=== PATIENT | female | born 1960 | race American Indian/Alaskan Native ===

== ENCOUNTER 2017-02-17 15:39 | Emergency (ER) | payer OTHER ==
[2017-02-17 15:39] VITALS: BMI 39.9
[2017-02-17 16:01] VITALS: RESP 16; TEMP 98.7; O2SAT 100
--- NOTE | 2017-02-17 16:56 | ED PDOC ---
HPI: Back Time Seen by Provider: 02/17/17 16:39 Chief Complaint (Nursing): Back Pain History Per: Patient History/Exam Limitations: no limitations Onset/Duration Of Symptoms: Days Current Symptoms Are (Timing): Still Present Severity: Moderate Additional Complaint(s): 56-year-old female, presents to the emergency department with complaints of back pain. Patient states she has been experiencing right-lower back pain x1 month. Pain is intermittent in nature and non-radiating. States she has been taking Percocet at home with minimal relief. Patient reports that she woke up this morning, w/ subjective fever and cold sweats, resulting in her coming to the ED for evaluation. Patient denies nausea/vomiting, changes in urination/ bowels, or any other associated symptoms. No other complaints at this time. Of note, patient has a Hx of multiple UTIs. Past Medical History Reviewed: Historical Data, Nursing Documentation, Vital Signs Vital Signs: Last Vital Signs Temp 98.7 F 02/17/17 15:57 Pulse 104 H 02/17/17 15:57 Resp 16 02/17/17 15:57 BP 157/68 H 02/17/17 15:57 Pulse Ox 100 02/17/17 15:57 - Medical History PMH: Anxiety, Arthritis, Asthma, Back Problems, Bronchitis, COPD, Depression, Diabetes (type II (steroid induced)), Deep Vein Thrombosis, Emphysema, Gastritis , GERD, Hiatal Hernia, HTN, Pneumonia, Pulmonary Embolism (2000, 2008), Chronic Pain Denies: CAD, Cardia Arrhythmia, CHF, Crohn's Disease, Dementia, Diverticulitis, Fractures, Gall Bladder Disease, Osteoporosis, Pancreatitis, Paranoia, Parkinson's Disease, Peripheral Edema, Post Traumatic Stress Disorder , Chronic Kidney Disease, Rheumatoid Arthritis, Schizophrenia, Seizures, Sickle Cell Disease, Sexually Transmitted Disease, TIA - Surgical History Surgical History: Cholecystectomy, Endoscopy, Denies: Appendectomy, CABG, Carotid Endarterectomy, Coronary Stent, Pacemaker , Tonsillectomy - Family History Family History: States: Unknown Family Hx - Immunization History Hx Tetanus Toxoid Vaccination: No Hx Influenza Vaccination: No Hx Pneumococcal Vaccination: No - Home Medications Home Medications: Ambulatory Orders Medication Instructions Recorded Acetaminophen with Codeine 1 tab PO PRN PRN 09/02/16 [Tylenol with Codeine #3 Tablet] Esomeprazole Magnesium [Nexium] 40 mg PO DAILY 09/02/16 Montelukast [Singulair] 10 mg PO DAILY 09/02/16 PARoxetine [Paxil] 60 mg PO DAILY 09/02/16 Rivaroxaban [Xarelto] 20 mg PO DAILY 09/02/16 Albuterol HFA [Ventolin HFA 90 2 puff PO PRN PRN 09/20/16 mcg/actuation (8 g)] oxyCODONE/Acetaminophen [Percocet 1 ea PO Q6H PRN #6 tab 09/27/16 5/325 mg Tab] Fluticasone/Salmeterol 250/50 1 puff NEB BID 10/17/16 [Advair Diskus 250/50] Losartan/Hydrochlorothiazide 1 tab PO DAILY 10/17/16 [Hyzaar 12.5 mg-100 mg] Rivaroxaban [Xarelto] 10 mg PO DAILY 10/17/16 - Allergies Allergies/Adverse Reactions: Allergies Allergy/AdvReac Type Severity Reaction Status Date / Time ketorolac tromethamine Allergy bleeding Verified 02/17/17 15:56 [From Toradol] NSAIDS (Non-Steroidal AdvReac bleeding Verified 02/17/17 15:56 Anti-Inflamma lactose intolerance AdvReac SWELLING Uncoded 02/17/17 15:56 Review of Systems ROS Statement: Except As Marked, All Systems Reviewed And Found Negative Constitutional: Negative for: Fever Gastrointestinal: Negative for: Nausea, Vomiting Genitourinary Female: Negative for: Dysuria, Frequency Musculoskeletal: Positive for: Back Pain Skin: Negative for: Rash Neurological: Negative for: Weakness, Numbness Physical Exam - Reviewed Nursing Documentation Reviewed: Yes Vital Signs Reviewed: Yes - Physical Exam Appears: Positive for: Non-toxic, No Acute Distress Head Exam: Positive for: ATRAUMATIC, NORMOCEPHALIC Skin: Positive for: Warm, Dry. Negative for: Rash Eye Exam: Positive for: Normal appearance Neck: Positive for: Painless ROM Respiratory: Negative for: Accessory Muscle Use, Respiratory Distress Back: Negative for: L CVA Tenderness, R CVA Tenderness, Vertebral Tenderness, Muscle Spasm Extremity: Positive for: Normal ROM Neurologic/Psych: Positive for: Alert, Oriented - Laboratory Results Result Diagrams: 02/17/17 18:03 02/17/17 18:03 - ECG O2 Sat by Pulse Oximetry: 100 Medical Decision Making Medical Decision Making: Impression: Back pain Diff Dx (includes but not limited to) UTI vs Pyelo Plan: * CMP * CBC * Urinalysis * Reassess and Disposition Pt labs are unremarkable, UA shows no UTI PT advised that dehydration could cause symptoms of flushing or back pain severity. Pt advised to increased water intake, rest and f.u with pmd will be given Rx for motrin advised to f./u with pain mgnt for more pain control Scribe Attestation: Documented by Chloe Walters, acting as a scribe for VAL Núñez. Provider Attestation: All medical record entries made by the Scribe were at my direction and personally dictated by me. I have reviewed the chart and agree that the record accurately reflects my personal performance of the history, physical exam, medical decision making, and the department course for this patient. I have also personally directed, reviewed, and agree with the discharge instructions and disposition. Disposition - Clinical Impression Clinical Impression: Back pain - Patient ED Disposition Is Patient to be Admitted: No Counseled Patient/Family Regarding: Studies Performed, Diagnosis, Need For Followup - Disposition Disposition: Routine/Home Disposition Time: 18:35 Condition: STABLE Instructions: Acute Low Back Pain (ED)
[2017-02-17 18:07] LABS: BASO # 0.1 K/uL (0.0-0.2); BASO % 1.3 % (0.0-2.0); EOS # 0.1 K/uL (0.0-0.7); EOS % 1.1 % (0.0-4.0); LYMPH # 1.3 K/uL (1.0-4.3); LYMPH % 17.6 % (20.0-40.0); MEAN CELL VOLUME 87.4 fl (81.0-99.0); MEAN CORPUSCULAR HGB CONC 33.2 g/dL (33.0-37.0); MEAN PLATELET VOLUME 8.2 fl (7.2-11.7); MONO # 0.6 K/uL (0.0-0.8); MONO % 7.7 % (0.0-10.0); NEUT # 5.5 K/uL (1.8-7.0); NEUT % 72.3 % (50.0-75.0); NRBC % 0.1 % (0.0-0.0); RED CELL DISTRIBUTION WIDTH 14.5 % (11.5-14.5); WHITE BLOOD COUNT 7.6 K/uL (4.8-10.8)
[2017-02-17 18:07] LABS: RBC URINE 2 /hpf (0-3); URINE BACTERIA RARE (<OCC); URINE BILIRUBIN NEGATIVE (NEGATIVE); URINE BLOOD NEGATIVE (NEGATIVE); URINE COLOR YELLOW (YELLOW); URINE GLUCOSE (UA) NEG (Normal); URINE KETONE NEGATIVE (NEGATIVE); URINE LEUKOCYTE ESTERASE NEG Leu/uL (Negative); URINE PROTEIN NEGATIVE (NEGATIVE); URINE UROBILINOGEN 0.2-1.0 mg/dL (0.2-1.0); WBC URINE < 1 /hpf (0-5)
[2017-02-17 18:15] LABS: ALB/GLOB RATIO 1.1 (1.0-2.1); ALKALINE PHOSPHATASE 111 U/L (38-126); ALT/SGPT 28 U/L (9-52); AST/SGOT 20 U/L (14-36); BILIRUBIN,TOTAL 0.5 mg/dl (0.2-1.3); BLOOD UREA NITROGEN 14 mg/dl (7-17); CALCIUM 9.5 mg/dL (8.4-10.2); CARBON DIOXIDE 25 mmol/L (22-30); CHLORIDE 101 mmol/L (98-107); GFR AFRICAN-AMERICAN > 60; GLUCOSE,RANDOM 110 mg/dL (65-105); SODIUM 138 mmol/l (132-148)
[2017-02-17 19:23] VITALS: BP 143/73; PULSE 85
== END 2017-02-17 18:45 | disposition home or self-care (01) ==
LOC: H.ER 15:39
DX: M54.9 Dorsalgia, unspecified (principal)

== ENCOUNTER 2017-02-28 00:40 | Emergency (ER) | payer OTHER ==
[2017-02-28 00:40] VITALS: BMI 39.9
[2017-02-28 00:58] VITALS: BP 133/77; PULSE 80; RESP 14; TEMP 98.7; O2SAT 100
[2017-02-28] MEDS ORDERED: Fluorescein 1 mg Ophthalmic Strip ONE (01:13)
--- NOTE | 2017-02-28 01:31 | ED PDOC ---
HPI: Eye Injury/Pain Time Seen by Provider: 02/28/17 00:50 Chief Complaint (Nursing): Eye Problem Chief Complaint (Provider): right eye irritation/redness/drainage History Per: Patient History/Exam Limitations: no limitations Onset/Duration Of Symptoms: Days (3) Current Symptoms Are (Timing): Still Present Injury To Eye?: No Additional Complaint(s): 56yo female presents to the ED with c/o right eye irritation, redness, and drainage x 3 days. Patient reports drainage is clear and watery. Denies changes in vision or any other medical complaints. Patient came to ED after work. Past Medical History Reviewed: Historical Data, Nursing Documentation, Vital Signs Vital Signs: Last Vital Signs Temp 98.7 F 02/28/17 00:55 Pulse 80 02/28/17 00:55 Resp 14 02/28/17 00:55 BP 133/77 02/28/17 00:55 Pulse Ox 100 02/28/17 00:55 - Medical History PMH: Anxiety, Arthritis, Asthma, Back Problems, Bronchitis, COPD, Depression, Diabetes (type II (steroid induced)), Deep Vein Thrombosis, Emphysema, Gastritis , GERD, Hiatal Hernia, HTN, Pneumonia, Pulmonary Embolism (2000, 2008), Chronic Pain Denies: CAD, Cardia Arrhythmia, CHF, Crohn's Disease, Dementia, Diverticulitis, Fractures, Gall Bladder Disease, Osteoporosis, Pancreatitis, Paranoia, Parkinson's Disease, Peripheral Edema, Post Traumatic Stress Disorder , Chronic Kidney Disease, Rheumatoid Arthritis, Schizophrenia, Seizures, Sickle Cell Disease, Sexually Transmitted Disease, TIA - Surgical History Surgical History: Cholecystectomy, Endoscopy, Denies: Appendectomy, CABG, Carotid Endarterectomy, Coronary Stent, Pacemaker , Tonsillectomy - Family History Family History: States: Unknown Family Hx - Immunization History Hx Tetanus Toxoid Vaccination: No Hx Influenza Vaccination: No Hx Pneumococcal Vaccination: No - Home Medications Home Medications: Ambulatory Orders Medication Instructions Recorded Acetaminophen with Codeine 1 tab PO PRN PRN 09/02/16 [Tylenol with Codeine #3 Tablet] Esomeprazole Magnesium [Nexium] 40 mg PO DAILY 09/02/16 Montelukast [Singulair] 10 mg PO DAILY 09/02/16 PARoxetine [Paxil] 60 mg PO DAILY 09/02/16 Rivaroxaban [Xarelto] 20 mg PO DAILY 09/02/16 Albuterol HFA [Ventolin HFA 90 2 puff PO PRN PRN 09/20/16 mcg/actuation (8 g)] oxyCODONE/Acetaminophen [Percocet 1 ea PO Q6H PRN #6 tab 09/27/16 5/325 mg Tab] Fluticasone/Salmeterol 250/50 1 puff NEB BID 10/17/16 [Advair Diskus 250/50] Losartan/Hydrochlorothiazide 1 tab PO DAILY 10/17/16 [Hyzaar 12.5 mg-100 mg] Rivaroxaban [Xarelto] 10 mg PO DAILY 10/17/16 Gentamicin 0.1% 0.1 / TP BID #1 tube 02/28/17 - Allergies Allergies/Adverse Reactions: Allergies Allergy/AdvReac Type Severity Reaction Status Date / Time ketorolac tromethamine Allergy bleeding Verified 02/17/17 15:56 [From Toradol] NSAIDS (Non-Steroidal AdvReac bleeding Verified 02/17/17 15:56 Anti-Inflamma lactose intolerance AdvReac SWELLING Uncoded 02/17/17 15:56 Review of Systems ROS Statement: Except As Marked, All Systems Reviewed And Found Negative Eyes: Positive for: Other (right eye irritation, redness, and drainage ). Negative for: Vision Change Physical Exam - Reviewed Nursing Documentation Reviewed: Yes Vital Signs Reviewed: Yes - Physical Exam Appears: Positive for: Well, No Acute Distress Head Exam: Positive for: ATRAUMATIC, NORMAL INSPECTION, NORMOCEPHALIC Skin: Positive for: Normal Color, Warm, Dry Eye Exam: Positive for: EOMI, PERRL, Other (right eye: injected sclera, corneal abrasion to center of eye; left eye: normal ) Neurologic/Psych: Positive for: Alert, Oriented - ECG O2 Sat by Pulse Oximetry: 100 Pulse Ox Interpretation: Normal (RA) Medical Decision Making Medical Decision Makin: Impression: corneal abrasion Patient stable for d/c and given Rx for Gentamicin. Scribe Attestation: Documented by Jessica Aly acting as a scribe for Usha Leigh PA-C. Provider Scribe Attestation: All medical record entries made by the Scribe were at my direction and personally dictated by me. I have reviewed the chart and agree that the record accurately reflects my personal performance of the history, physical exam, medical decision making, and the department course for this patient. I have also personally directed, reviewed, and agree with the discharge instructions and disposition. Disposition - Clinical Impression Clinical Impression: Corneal abrasion - Patient ED Disposition Is Patient to be Admitted: No Counseled Patient/Family Regarding: Diagnosis, Need For Followup, Rx Given - Disposition Referrals: Damian Garcia MD [Primary Care Provider] - Disposition: Routine/Home Disposition Time: 01:29 Condition: GOOD Prescriptions: Gentamicin 0.1% 0.1 / TP BID #1 tube Instructions: Corneal Abrasion (ED) Forms: [facility] ED School/Work Excuse
== END 2017-02-28 01:37 | disposition home or self-care (01) ==
LOC: H.ER 00:40
DX: H57.8 Other specified disorders of eye and adnexa (principal); E11.9 Type 2 diabetes mellitus without complications; I10 Essential (primary) hypertension; J44.9 Chronic obstructive pulmonary disease, unspecified; Z79.01 Long term (current) use of anticoagulants; Z86.711 Personal history of pulmonary embolism; Z86.718 Personal history of other venous thrombosis and embolism; F41.9 Anxiety disorder, unspecified

== ENCOUNTER 2017-06-03 13:32 | Inpatient (IN) | payer OTHER ==
[2017-06-03 13:32] VITALS: BMI 39.9
[2017-06-03 14:59] LABS: RBC URINE 1 /hpf (0-3); URINE BILIRUBIN NEGATIVE (NEGATIVE); URINE BLOOD NEGATIVE (NEGATIVE); URINE COLOR YELLOW (YELLOW); URINE GLUCOSE (UA) NEG (Normal); URINE KETONE TRACE mg/dL (NEGATIVE); URINE LEUKOCYTE ESTERASE NEG Leu/uL (Negative); URINE PROTEIN 30 mg/dL (NEGATIVE); URINE UROBILINOGEN 0.2-1.0 mg/dL (0.2-1.0); WBC URINE 1 /hpf (0-5)
--- NOTE | 2017-06-03 15:04 | ED PDOC ---
HPI: Chest Pain Time Seen by Provider: 06/03/17 13:47 Chief Complaint (Nursing): Chest Pain Chief Complaint (Provider): Chest Pain History Per: Patient History/Exam Limitations: no limitations Onset/Duration Of Symptoms: Days (x2-3) Current Symptoms Are (Timing): Still Present Additional Complaint(s): Helene Montgomery is a 56 year old female with previous medical history of deep vein thrombosis and pulmonary embolism, who presents to the emergency department with a complaint of chest pain associated with shortness of breath ongoing for 2-3 days. Denied any radiation of pain, fever, chills, leg pain or edema. Patient stated she was recently admitted in the hospital in [place] for 4 days for similar symptoms where she had an endoscopy done which showed no significant findings. PMD: Damian Garcia MD Past Medical History Reviewed: Historical Data, Nursing Documentation, Vital Signs Vital Signs: Last Vital Signs Temp 99.3 F 06/03/17 13:38 Pulse 111 H 06/03/17 13:38 Resp 20 06/03/17 13:38 BP 159/81 H 06/03/17 13:38 Pulse Ox 98 06/03/17 15:44 - Medical History PMH: Anxiety, Arthritis, Asthma, Back Problems, Bronchitis, COPD, Depression, Diabetes (type II (steroid induced)), Deep Vein Thrombosis, Emphysema, Gastritis , GERD, Hiatal Hernia, HTN, Pneumonia, Pulmonary Embolism (2000, 2008), Chronic Pain Denies: CAD, Cardia Arrhythmia, CHF, Crohn's Disease, Dementia, Diverticulitis, Fractures, Gall Bladder Disease, Osteoporosis, Pancreatitis, Paranoia, Parkinson's Disease, Peripheral Edema, Post Traumatic Stress Disorder , Chronic Kidney Disease, Rheumatoid Arthritis, Schizophrenia, Seizures, Sickle Cell Disease, Sexually Transmitted Disease, TIA - Surgical History Surgical History: Cholecystectomy, Endoscopy, Denies: Appendectomy, CABG, Carotid Endarterectomy, Coronary Stent, Pacemaker , Tonsillectomy - Family History Family History: States: Unknown Family Hx - Social History Current smoker - smoking cessation education provided: No Ex-Smoker (has not smoked in the last 12 months): Yes Alcohol: None Drugs: Denies - Immunization History Hx Tetanus Toxoid Vaccination: No Hx Influenza Vaccination: No Hx Pneumococcal Vaccination: No - Home Medications Home Medications: Ambulatory Orders Medication Instructions Recorded Acetaminophen with Codeine 1 tab PO PRN PRN 09/02/16 [Tylenol with Codeine #3 Tablet] Esomeprazole Magnesium [Nexium] 40 mg PO DAILY 09/02/16 Montelukast [Singulair] 10 mg PO DAILY 09/02/16 PARoxetine [Paxil] 60 mg PO DAILY 09/02/16 Rivaroxaban [Xarelto] 20 mg PO DAILY 09/02/16 Albuterol HFA [Ventolin HFA 90 2 puff PO PRN PRN 09/20/16 mcg/actuation (8 g)] oxyCODONE/Acetaminophen [Percocet 1 ea PO Q6H PRN #6 tab 09/27/16 5/325 mg Tab] Fluticasone/Salmeterol 250/50 1 puff NEB BID 10/17/16 [Advair Diskus 250/50] Losartan/Hydrochlorothiazide 1 tab PO DAILY 10/17/16 [Hyzaar 12.5 mg-100 mg] Rivaroxaban [Xarelto] 10 mg PO DAILY 10/17/16 Gentamicin 0.1% 0.1 / TP BID #1 tube 02/28/17 - Allergies Allergies/Adverse Reactions: Allergies Allergy/AdvReac Type Severity Reaction Status Date / Time ketorolac tromethamine Allergy bleeding Verified 02/17/17 15:56 [From Toradol] NSAIDS (Non-Steroidal AdvReac bleeding Verified 02/17/17 15:56 Anti-Inflamma lactose intolerance AdvReac SWELLING Uncoded 02/17/17 15:56 PREM Risk Score for UA/NSTEMI - PREM Risk Score Age > 64: NO 3 or more CAD Risk Factors: NO Known CAD (Stenosis greater than 50%): NO Aspirin use in past 7 days: NO Severe Angina: NO EKG ST changes greater than 0.5mm: NO Positive Cardiac Marker: NO PREM Score: 0 Risk %: 5% Wells Criteria for PE - Wells Criteria for Pulmonary Embolism Clinical Signs and Symptoms of DVT: No P.E is #1 Diagnosis, or Equally Likely: Yes Heart Rate >100: Yes Immobilization at least 3 days;Surgery previous 4 weeks: No Previous, objectively diagnosed PE or DVT: Yes Hemoptysis: No Malignancy w/treatment within 6 months, or palliative: Yes Total Score: 5.0 Review of Systems ROS Statement: Except As Marked, All Systems Reviewed And Found Negative Constitutional: Negative for: Fever, Chills Cardiovascular: Positive for: Chest Pain. Negative for: Other (radiation of pain) Respiratory: Positive for: Shortness of Breath Musculoskeletal: Negative for: Leg Pain (or edema) Physical Exam - Reviewed Nursing Documentation Reviewed: Yes Vital Signs Reviewed: Yes - Physical Exam Appears: Positive for: Well, Non-toxic, No Acute Distress Head Exam: Positive for: ATRAUMATIC, NORMAL INSPECTION, NORMOCEPHALIC Cardiovascular/Chest: Positive for: Regular Rate, Rhythm, Chest Non Tender Respiratory: Positive for: Normal Breath Sounds. Negative for: Respiratory Distress Gastrointestinal/Abdominal: Positive for: Tenderness (upper epigastium). Negative for: Normal Exam Extremity: Positive for: Normal ROM. Negative for: Tenderness, Pedal Edema, Deformity Neurologic/Psych: Positive for: Alert, communications controller II-XII, Oriented - Laboratory Results Result Diagrams: 06/03/17 14:54 06/03/17 14:54 - ECG Interpretation Of ECG: ST @ 103, no ST-T changes. O2 Sat by Pulse Oximetry: 98 (RA) Pulse Ox Interpretation: Normal - Radiology X-Ray: Read By Radiologist (No active pulmonary disease. COPD.) Medical Decision Making Medical Decision Making: Initial Impression: Epigastium pain; ACS; PE Initial Plan: * EKG * Labs * Lipase * Troponin I * Urine dipstick * PTT * PT * D Dimer * CXR * Urinalysis Time: 1525 --CXR: no active pulmonary disease. COPD noted. Accession No. : [id number] Patient Name / ID : VANNESSA DELEON / [id number] Exam Date : 06/03/2017 16:15:54 ( Approved ) Study Comment : Sex / Age : F / 56Y Creator : FRANCISCA GARCIA MD Dictator : FRANCISCA GARCIA MD Director Of Operations Support : Teleprinter Installer : FRANCISCA GARCIA MD Approver2 : Report Date : 06/03/2017 16:59:07 My Comment : PROCEDURE: CT Chest with contrast (Pulmonary Angiogram) HISTORY: Midsternal pain, h/o PE COMPARISON: Chest radiographs performed the same day. TECHNIQUE: Axial computed tomography images were obtained of the chest in the pulmonary arterial phase of enhancement. Coronal and sagittal reformatted images were created and reviewed. Intravenous contrast dose: 90 mL Visipaque 320 Radiation dose: Total exam DLP = 403.65 mGy-cm. This CT exam was performed using one or more of the following dose reduction techniques: Automated exposure control, adjustment of the mA and/or kV according to patient size, and/or use of iterative reconstruction technique. FINDINGS: PULMONARY ARTERIES: Examination is limited for evaluation of pulmonary embolism due to missed bolus. Allowing for this, there are no filling defects in the central pulmonary arteries to suggest acute pulmonary embolism. AORTA: The aorta is normal in caliber. No thoracic aortic aneurysm or dissection. LUNGS: There is bibasilar subsegmental atelectasis. No nodule, mass or pulmonary consolidation. There is a subpleural calcified nodule in the right lung base. PLEURAL SPACES: No effusion or pneumothorax. HEART: The heart is normal in size. No pericardial effusion LYMPH NODES: No pathologic mediastinal or hilar lymphadenopathy. BONES, CHEST WALL: Within normal limits for the patient's age. OTHER FINDINGS: Unremarkable. IMPRESSION: 1. Suboptimal examination for evaluation of pulmonary embolism due to missed bolus. Allowing for this, no large central pulmonary embolism. 2. No focal consolidation, pleural effusion or pneumothorax. ~ Scribe Attestation: Documented by [place], acting as a scribe for Dang Franks MD. Provider Scribe Attestation: All medical record entries made by the Scribe were at my direction and personally dictated by me. I have reviewed the chart and agree that the record accurately reflects my personal performance of the history, physical exam, medical decision making, and the department course for this patient. I have also personally directed, reviewed, and agree with the discharge instructions and disposition. Disposition - Clinical Impression Clinical Impression: Chest pain - Patient ED Disposition Is Patient to be Admitted: Yes - Disposition Disposition Time: 17:26 Condition: STABLE Forms: [facility] ([place]) - Pt Status Changed To: Hospital Disposition Of: Observation - POA Present On Arrival: None
[2017-06-03 15:08] LABS: BASO # 0.1 K/uL (0.0-0.2); EOS # 0.1 K/uL (0.0-0.7); EOS % 0.9 % (0.0-4.0); HEMATOCRIT 38.8 % (34.0-47.0); LYMPH # 1.4 K/uL (1.0-4.3); LYMPH % 17.3 % (20.0-40.0); MEAN CELL VOLUME 90.5 fl (81.0-99.0); MEAN CORPUSCULAR HEMOGLOBIN 30.3 pg (27.0-31.0); MEAN CORPUSCULAR HGB CONC 33.5 g/dL (33.0-37.0); MEAN PLATELET VOLUME 8.3 fl (7.2-11.7); MONO # 0.5 K/uL (0.0-0.8); MONO % 6.2 % (0.0-10.0); NEUT # 6.2 K/uL (1.8-7.0); NEUT % 74.6 % (50.0-75.0); NRBC % 0.1 % (0.0-0.0); RED CELL DISTRIBUTION WIDTH 13.9 % (11.5-14.5); WHITE BLOOD COUNT 8.3 K/uL (4.8-10.8)
[2017-06-03 15:11] LABS: ALB/GLOB RATIO 1.3 (1.0-2.1); ALKALINE PHOSPHATASE 124 U/L (38-126); ALT/SGPT 39 U/L (9-52); AST/SGOT 22 U/L (14-36); BILIRUBIN,TOTAL 0.7 mg/dl (0.2-1.3); BLOOD UREA NITROGEN 8 mg/dl (7-17); CALCIUM 9.6 mg/dL (8.4-10.2); CARBON DIOXIDE 24 mmol/L (22-30); CHLORIDE 105 mmol/L (98-107); GFR AFRICAN-AMERICAN > 60; GLUCOSE,RANDOM 144 mg/dL (65-105); LIPASE 49 U/L (23-300); POTASSIUM 3.7 MMOL/L (3.6-5.0); SODIUM 139 mmol/l (132-148); TOTAL PROTEIN 7.1 G/DL (6.3-8.2)
[2017-06-03] MEDS ORDERED: Morphine 4 MG/ML VIAL IV STA (15:11)
[2017-06-03] MEDS ORDERED: Morphine 4 MG/ML VIAL ONE (15:14)
--- NOTE | 2017-06-03 15:27 | RAD ---
HISTORY: Midsternal pain COMPARISON: 07/21/2016. FINDINGS: LUNGS: The lungs are hyperinflated and there is peribronchial thickening with chronic changes in both lungs. PLEURA: No significant pleural effusion identified, no pneumothorax apparent. CARDIOVASCULAR: Normal. OSSEOUS STRUCTURES: No significant abnormalities. VISUALIZED UPPER ABDOMEN: Normal. OTHER FINDINGS: None. IMPRESSION: No active pulmonary disease. COPD.
[2017-06-03 15:34] LABS: PARTIAL THROMBOPLASTIN TIME 30.9 Seconds (25.6-37.1)
[2017-06-03] MEDS ORDERED: Iodixanol 320 MG/ML 100 ML BOTTLE IV ONE (15:58)
[2017-06-03] MEDS ORDERED: Sodium Chloride 0.9% 50 ML IV ONE (15:58)
--- NOTE | 2017-06-03 17:00 | CT ---
PROCEDURE: CT Chest with contrast (Pulmonary Angiogram) HISTORY: Midsternal pain, h/o PE COMPARISON: Chest radiographs performed the same day. TECHNIQUE: Axial computed tomography images were obtained of the chest in the pulmonary arterial phase of enhancement. Coronal and sagittal reformatted images were created and reviewed. Intravenous contrast dose: 90 mL Visipaque 320 Radiation dose: Total exam DLP = 403.65 mGy-cm. This CT exam was performed using one or more of the following dose reduction techniques: Automated exposure control, adjustment of the mA and/or kV according to patient size, and/or use of iterative reconstruction technique. FINDINGS: PULMONARY ARTERIES: Examination is limited for evaluation of pulmonary embolism due to missed bolus. Allowing for this, there are no filling defects in the central pulmonary arteries to suggest acute pulmonary embolism. AORTA: The aorta is normal in caliber. No thoracic aortic aneurysm or dissection. LUNGS: There is bibasilar subsegmental atelectasis. No nodule, mass or pulmonary consolidation. There is a subpleural calcified nodule in the right lung base. PLEURAL SPACES: No effusion or pneumothorax. HEART: The heart is normal in size. No pericardial effusion LYMPH NODES: No pathologic mediastinal or hilar lymphadenopathy. BONES, CHEST WALL: Within normal limits for the patient's age. OTHER FINDINGS: Unremarkable. IMPRESSION: 1. Suboptimal examination for evaluation of pulmonary embolism due to missed bolus. Allowing for this, no large central pulmonary embolism. 2. No focal consolidation, pleural effusion or pneumothorax.
[2017-06-03] MEDS ORDERED: Albuterol HFA 90 mcg/actuation (8 g) IH PRN (21:09)
[2017-06-03] MEDS ORDERED: Albuterol-Ipratrop 3 mg / 0.5 (3 ml) UD INH PRN (21:10)
[2017-06-03] MEDS: Fluticasone-Salmeterol 250-50mcg Diskus IH SCH (21:45)
[2017-06-04] MEDS ORDERED: Albuterol-Ipratrop 3 mg / 0.5 (3 ml) UD INH PRN (04:21)
[2017-06-04] MEDS: OLMESARTAN MED PO SCH (09:45)
[2017-06-04] MEDS: Fluticasone-Salmeterol 250-50mcg Diskus IH SCH ×2 (09:45→21:09)
[2017-06-04] MEDS: Pantoprazole 40 mg EC Tab PO SCH (09:45)
[2017-06-04] MEDS: AMLODIPINE BES PO SCH (09:45)
[2017-06-04] MEDS: Multivitamin With Minerals Tab PO SCH (09:46)
--- NOTE | 2017-06-04 11:39 | CARD ---
APPROVED REPORT EKG Measurement Heart [id number] <Conclusion> Sinus tachycardia Otherwise normal ECG
--- NOTE | 2017-06-04 13:11 | CP.PCM.HP ---
History of Present Illness - History of Present Illness History of Present Illness: 56 y/o F with PMHx of DVT and PE, s/p IVC filter who presented to ED yesterday c /o midchest pain. Patient states that her chest pain started months ago, and recently has been gradually increasing in intensity. Pt reports that the pain started after meals, no radiating, associated with nausea, but no vomiting, and no alleviated with recent prescribed pepcid. Patient stated she was recently admitted in the hospital in [place] for 4 days for similar symptoms where she had an endoscopy done which showed no significant findings. patient seen and examined with attending Still c/o middle chest pain. The pain is worse when she drinks coffee or after meals, and associated with nausea, but no vomiting Denies black stools, or blood in stools. Present on Admission - Present on Admission Any Indicators Present on Admission: No History of DVT/PE: Yes History of Uncontrolled Diabetes: No Urinary Catheter: No Decubitus Ulcer Present: No Review of Systems - Review of Systems All systems: reviewed and no additional remarkable complaints except (as per HPI ) Past Patient History - Infectious Disease Hx of Infectious Diseases: None - Tetanus Immunizations Tetanus Immunization: Unknown - Past Medical History & Family History Past Medical History?: Yes - Past Social History Smoking Status: Former Smoker - CARDIAC Hx Cardiac Disorders: Yes Hx Cardia Arrhythmia: No Hx Congestive Heart Failure: No Hx Hypertension: Yes Hx Pacemaker: No Hx Peripheral Edema: No - PULMONARY Hx Respiratory Disorders: Yes Hx Asthma: Yes Hx Bronchitis: Yes Hx Chronic Obstructive Pulmonary Disease (COPD): Yes Hx Emphysema: Yes Hx Pneumonia: Yes Hx Pulmonary Embolism: Yes (2000, 2008) - NEUROLOGICAL Hx Neurological Disorder: No Hx Dementia: No Hx Parkinson's Disease: No Hx Seizures: No Hx Transient Ischemic Attacks (TIA): No - HEENT Hx HEENT Problems: No Hx Blind: No Hx Cataracts: No Hx Deafness: No Hx Difficulty Chewing: No Hx Epistaxis: No Hx Glaucoma: No Hx Macular Degeneration: No - RENAL Hx Chronic Kidney Disease: No - ENDOCRINE/METABOLIC Hx Endocrine Disorders: No Other/Comment: per pt "type 2 diabetic when taking prednisone but sugar stabilized after tx" - HEMATOLOGICAL/ONCOLOGICAL Hx Blood Disorders: No Hx Sickle Cell Disease: No - INTEGUMENTARY Hx Dermatological Problems: No Hx Basil Cell: No Hx Rodriguez: No Hx Cellulitis: No Hx Eczema: No Hx Melanoma: No Hx Psoriasis: No Hx Squamous Cell: No - MUSCULOSKELETAL/RHEUMATOLOGICAL Hx Musculoskeletal Disorders: Yes Hx Arthritis: Yes Hx Back Pain: Yes Hx Falls: No Hx Fractures: No Hx Osteoporosis: No Hx Rheumatoid Arthritis: No - GASTROINTESTINAL Hx Crohn's Disease: No Hx Diverticulitis: No Hx Gall Bladder Disease: No Hx Gastritis: Yes Hx Pancreatitis: No - GENITOURINARY/GYNECOLOGICAL Hx Genitourinary Disorders: No Hx Sexually Transmitted Disorders: No - PSYCHIATRIC Hx Psychophysiologic Disorder: Yes Hx Anxiety: Yes Hx Depression: Yes Hx Paranoia: No Hx Post Traumatic Stress Disorder: No Hx Schizophrenia: No - SURGICAL HISTORY Hx Surgeries: Yes Hx Appendectomy: No Hx Carotid Endarterectomy: No Hx Cholecystectomy: Yes Hx Coronary Artery Bypass Graft: No Hx Coronary Stent: No Hx Tonsillectomy: No - ANESTHESIA Hx Anesthesia: Yes Hx Anesthesia Reactions: No Hx Malignant Hyperthermia: No Meds Allergies/Adverse Reactions: Allergies Allergy/AdvReac Type Severity Reaction Status Date / Time ketorolac tromethamine Allergy bleeding Verified 02/17/17 15:56 [From Toradol] NSAIDS (Non-Steroidal AdvReac bleeding Verified 02/17/17 15:56 Anti-Inflamma lactose intolerance AdvReac SWELLING Uncoded 02/17/17 15:56 Physical Exam - Constitutional Appears: No Acute Distress - ENT Exam ENT Exam: Mucous Membranes Moist - Respiratory Exam Respiratory Exam: Clear to Auscultation Bilateral, NORMAL BREATHING PATTERN - Cardiovascular Exam Cardiovascular Exam: REGULAR RHYTHM, +S1, +S2 - GI/Abdominal Exam GI & Abdominal Exam: Normal Bowel Sounds, Soft. absent: Distended, Guarding, Rigid, Tenderness - Extremities Exam Extremities exam: Positive for: normal inspection. Negative for: calf tenderness, pedal edema - Neurological Exam Neurological exam: Alert, Oriented x3 - Skin Skin Exam: Dry, Intact, Normal Color Results - Vital Signs Recent Vital Signs: Last Vital Signs Temp 98.5 F 06/04/17 12:00 Pulse 75 06/04/17 12:00 Resp 18 06/04/17 12:00 BP 106/71 06/04/17 12:00 Pulse Ox 94 L 06/04/17 12:00 - Labs Result Diagrams: 06/03/17 14:54 06/03/17 14:54 Labs: Laboratory Results - last 24 hr 06/03/17 06/04/17 22:00 05:20 Troponin I < 0.0120 < 0.0120 Assessment & Plan - Assessment and Plan (Free Text) Assessment: 56 y/o F with PMH including HTN, GERD, Intermittent asthma, DVT/PE admitted to telemetry with chest pain to r/o ACS. Plan: Midsternal chest pain -admit to telemetry for obs likely GERD vs Gastritis, but because patient's risk factors for ACS and PE, we need to consider these diagnosis in our differential -Troponin x 2 neg, f/u 3rd troponin I -EKG showed no ST-T wave changes -CXR showed no active disease, but evidence of COPD ( as per official report) - Chest CT read as suboptimal eval for PE -c/w with PPI -start Pepcid -start Reglan 10 mg ACHS -zofran PRN for N/V -f/u Upper GI series -Cardiology consult, consider stress test as outpatient due to risk factors -GI consult, f/u recommendations HTN -held home meds due to BP closed to low normal levels DVT prophylaxis c/w home Xarelto - Date & Time Date: 06/04/17 Time: 09:00
--- NOTE | 2017-06-04 18:27 | CP.PCM.CON ---
History of Present Illness - History of Present Illness History of Present Illness: I was asked to see patient by Dr. Garcia. Patient is a 56 year old female with PMH HTN, DVT/PE, s/p IVC filter, who presents with chest pain. Symptoms occur with rest, and are associated with eating. The patient has noted dyspepsia, but symptoms are not resposive to conservative therapy. Review of Systems - Constitutional Constitutional: absent: As Per HPI, Anorexia, Chills, Daytime Sleepiness, Excessive Sweating, Fatigue, Fever, Frequent Falls, Headache, Increased Appetite , Lethargy, Malaise, Night Sweats, Snoring, Sleep Apnea, Weight Gain, Weight Loss, Weakness, Other - EENT Eyes: absent: As Per HPI, Blind Spots, Blurred Vision, Change in Vision, Decreased Night Vision, Diplopia, Discharge, Dry Eye, Exophthalmos, Floaters, Irritation, Itchy Eyes, Loss of Peripheral Vision, Pain, Photophobia, Requires Corrective Lenses, Sees Flashes, Spots in Vision, Tunnel Vision, Other Visual Disturbances, Loss of Vision, Other Ears: absent: As Per HPI, Decreased Hearing, Ear Discharge, Ear Pain, Tinnitus, Abnormal Hearing, Disequilibrium, Dizziness, Other Nose/Mouth/Throat: absent: As Per HPI, Epistaxis, Nasal Congestion, Nasal Discharge, Nasal Obstruction, Nasal Trauma, Nose Pain, Post Nasal Drip, Sinus Pain, Sinus Pressure, Bleeding Gums, Change in Voice, Dental Pain, Dry Mouth, Dysphagia, Halitosis, Hoarsness, Lip Swelling, Mouth Lesions, Mouth Pain, Odynophagia, Sore Throat, Throat Swelling, Tongue Swelling, Facial Pain, Neck Pain, Neck Mass, Other - Cardiovascular Cardiovascular: absent: As Per HPI, Acrocyanosis, Chest Pain, Chest Pain at Rest , Chest Pain with Activity, Claudication, Diaphoresis, Dyspnea, Dyspnea on Exertion, Edema, Irregular Heart Rhythm, Pain Radiating to Arm/Neck/Jaw, Leg Edema, Leg Ulcers, Lightheadedness, Orthopnea, Palpitations, Paroxysmal Nocturnal Dyspnea, Pedal Edema, Radiating Pain, Rapid Heart Rate, Slow Heart Rate, Syncope, Other - Respiratory Respiratory: absent: As Per HPI, Cough, Dyspnea, Hemoptysis, Dyspnea on Exertion , Wheezing, Snoring, Stridor, Pain on Inspiration, Chest Congestion, Excessive Mucous Production, Change in Mucous Color, Pain with Coughing, Other - Gastrointestinal Gastrointestinal: Dyspepsia - Genitourinary Genitourinary: absent: As Per HPI, Change in Urinary Stream, Difficulty Urinating, Dysuria, Flank Pain, Hematuria, Pyuria, Nocturia, Urinary Incontinence, Urinary Frequency, Urinary Hesitance, Urinary Urgency, Voiding Freq/Small Amts, Freq UTI, Hx Renal/Bladder Calculi, Hx /Renal Surgery, Bladder Distension, Other - Musculoskeletal Musculoskeletal: absent: As Per HPI, Abnormal Gait, Arthralgias, Atrophy, Back Pain, Deformity, Joint Swelling, Limited Range of Motion, Loss of Height, Muscle Cramps, Muscle Weakness, Myalgias, Neck Pain, Numbness, Radiating Pain into Limb, Stiffness, Tingling, Other - Integumentary Integumentary: absent: As Per HPI, Acne, Alopecia, Bleeding Lesions, Change in Hair, Change in Nails, Change in Pigmentation, Changing Lesions, Dry Skin, Erythema, Furuncle, Hirsutism, Lesions, New Lesions, Non-Healing Lesions, Photosensitivity, Pruritus, Rash, Skin Pain, Skin Ulcer, Sores, Striae, Swelling , Unusual Bruising, Wounds, Jaundice, Other - Neurological Neurological: absent: As Per HPI, Abnormal Gait, Abnormal Hearing, Abnormal Movements, Abnormal Speech, Behavioral Changes, Burning Sensations, Confusion, Convulsions, Disequilibrium, Dizziness, Numbness, Focal Weakness, Frequent Falls , Headaches, Lack of Coordination, Loss of Vision, Memory Loss, Paresthesias, Radicular Pain, Restless Legs, Sensory Deficit, Syncope, Tingling, Tremor, Vertigo, Weakness, Other Visual Disturbances, Other - Psychiatric Psychiatric: absent: As Per HPI, Abnormal Sleep Pattern, Anhedonia, Anxiety, Auditory Hallucinations, Behavioral Changes, Change in Appetite, Change in Libido, Confusion, Depression, Difficulty Concentrating, Hallucinations, Homicidal Ideation, Hopelessness, Irritability, Memory Loss, Mood Swings, Panic Attacks, Paranoia, Suicidal Ideation, Visual Hallucinations, Tactile Hallucinations, Other - Endocrine Endocrine: absent: As Per HPI, Change in Body Appearance, Change in Libido, Cold Intolorance, Deepening of Voice, Excessive Sweating, Fatigue, Flushing, Heat Intolorance, Increase in Ring/Shoe/Hat Size, Palpitations, Polydipsia, Polyphagia, Polyuria, Other - Hematologic/Lymphatic Hematologic: absent: As Per HPI, Easy Bleeding, Easy Bruising, Lymphadenopathy, Other Past Patient History - Infectious Disease Hx of Infectious Diseases: None - Tetanus Immunizations Tetanus Immunization: Unknown - Past Medical History & Family History Past Medical History?: Yes - Past Social History Smoking Status: Former Smoker - CARDIAC Hx Cardiac Disorders: Yes Hx Cardia Arrhythmia: No Hx Congestive Heart Failure: No Hx Hypertension: Yes Hx Pacemaker: No Hx Peripheral Edema: No - PULMONARY Hx Respiratory Disorders: Yes Hx Asthma: Yes Hx Bronchitis: Yes Hx Chronic Obstructive Pulmonary Disease (COPD): Yes Hx Emphysema: Yes Hx Pneumonia: Yes Hx Pulmonary Embolism: Yes (2000, 2008) - NEUROLOGICAL Hx Neurological Disorder: No Hx Dementia: No Hx Parkinson's Disease: No Hx Seizures: No Hx Transient Ischemic Attacks (TIA): No - HEENT Hx HEENT Problems: No Hx Blind: No Hx Cataracts: No Hx Deafness: No Hx Difficulty Chewing: No Hx Epistaxis: No Hx Glaucoma: No Hx Macular Degeneration: No - RENAL Hx Chronic Kidney Disease: No - ENDOCRINE/METABOLIC Hx Endocrine Disorders: No Other/Comment: per pt "type 2 diabetic when taking prednisone but sugar stabilized after tx" - HEMATOLOGICAL/ONCOLOGICAL Hx Blood Disorders: No Hx Sickle Cell Disease: No - INTEGUMENTARY Hx Dermatological Problems: No Hx Basil Cell: No Hx Rodriguez: No Hx Cellulitis: No Hx Eczema: No Hx Melanoma: No Hx Psoriasis: No Hx Squamous Cell: No - MUSCULOSKELETAL/RHEUMATOLOGICAL Hx Musculoskeletal Disorders: Yes Hx Arthritis: Yes Hx Back Pain: Yes Hx Falls: No Hx Fractures: No Hx Osteoporosis: No Hx Rheumatoid Arthritis: No - GASTROINTESTINAL Hx Crohn's Disease: No Hx Diverticulitis: No Hx Gall Bladder Disease: No Hx Gastritis: Yes Hx Pancreatitis: No - GENITOURINARY/GYNECOLOGICAL Hx Genitourinary Disorders: No Hx Sexually Transmitted Disorders: No - PSYCHIATRIC Hx Psychophysiologic Disorder: Yes Hx Anxiety: Yes Hx Depression: Yes Hx Paranoia: No Hx Post Traumatic Stress Disorder: No Hx Schizophrenia: No - SURGICAL HISTORY Hx Surgeries: Yes Hx Appendectomy: No Hx Carotid Endarterectomy: No Hx Cholecystectomy: Yes Hx Coronary Artery Bypass Graft: No Hx Coronary Stent: No Hx Tonsillectomy: No - ANESTHESIA Hx Anesthesia: Yes Hx Anesthesia Reactions: No Hx Malignant Hyperthermia: No Meds Allergies/Adverse Reactions: Allergies Allergy/AdvReac Type Severity Reaction Status Date / Time ketorolac tromethamine Allergy bleeding Verified 02/17/17 15:56 [From Toradol] NSAIDS (Non-Steroidal AdvReac bleeding Verified 02/17/17 15:56 Anti-Inflamma lactose intolerance AdvReac SWELLING Uncoded 02/17/17 15:56 - Medications Medications: Current Medications Albuterol (Ventolin Hfa 90 Mcg/Actuation (8 G)) 2 puff IH Q4H PRN PRN Reason: Shortness of Breath Albuterol/Ipratropium (Duoneb 3 Mg/0.5 Mg (3 Ml) Ud) 3 ml INH RQID PRN PRN Reason: Shortness of Breath Cholecalciferol (Vitamin D) 1,000 iu PO DAILY [facility] Last Admin: 06/04/17 09:46 Dose: 1,000 iu Clonidine HCl (Catapres) 0.1 mg PO DAILY PRN PRN Reason: High Blood Pressure Famotidine (Pepcid) 40 mg IVP DAILY [facility] Last Admin: 06/04/17 13:49 Dose: 40 mg Home Med (Amlodipine Bes/Olmesartan Med [Cony 5-40 Mg Tablet]) 1 tab PO DAILY [facility] Last Admin: 06/04/17 09:45 Dose: 1 tab Metoclopramide HCl (Reglan) 10 mg PO ACHS [facility] Last Admin: 06/04/17 16:48 Dose: 10 mg Montelukast Sodium (Singulair) 10 mg PO DAILY [facility] Last Admin: 06/04/17 09:45 Dose: 10 mg Multivitamins/Minerals (Therapeutic-M Tab) 1 tab PO DAILY [facility] Last Admin: 06/04/17 09:46 Dose: 1 tab Olanzapine (Zyprexa) 5 mg PO HS [facility] Last Admin: 06/03/17 21:43 Dose: 5 mg Ondansetron HCl (Zofran Inj) 4 mg IVP Q6 PRN PRN Reason: Nausea/Vomiting Last Admin: 06/04/17 10:42 Dose: 4 mg Pantoprazole Sodium (Protonix Ec Tab) 40 mg PO DAILY [facility] Last Admin: 06/04/17 09:45 Dose: 40 mg Paroxetine HCl (Paxil) 20 mg PO DAILY [facility] Last Admin: 06/04/17 09:45 Dose: 20 mg Rivaroxaban (Xarelto) 20 mg PO HS [facility] PRN Reason: Protocol Last Admin: 06/03/17 21:44 Dose: Not Given Fluticasone/Salmeterol (Advair Diskus 250/50) 1 puff IH Q12H [facility] Last Admin: 06/04/17 09:45 Dose: 1 puff Tramadol HCl (Ultram) 50 mg PO Q8 PRN PRN Reason: Pain, severe (8-10) Last Admin: 06/03/17 21:27 Dose: 50 mg Physical Exam - Constitutional Appears: Non-toxic - Head Exam Head Exam: NORMAL INSPECTION - Eye Exam Eye Exam: Normal appearance - ENT Exam ENT Exam: Mucous Membranes Moist - Neck Exam Neck exam: Positive for: Normal Inspection - Respiratory Exam Respiratory Exam: NORMAL BREATHING PATTERN - Cardiovascular Exam Cardiovascular Exam: REGULAR RHYTHM - GI/Abdominal Exam GI & Abdominal Exam: Normal Bowel Sounds - Rectal Exam Rectal Exam: Deferred - Extremities Exam Extremities exam: Negative for: pedal edema - Back Exam Back exam: NORMAL INSPECTION - Neurological Exam Neurological exam: Alert, Oriented x3 - Psychiatric Exam Psychiatric exam: Normal Affect - Skin Skin Exam: Normal Color Results - Vital Signs Recent Vital Signs: Last Vital Signs Temp 98.1 F 06/04/17 15:38 Pulse 84 06/04/17 15:38 Resp 20 06/04/17 15:38 BP 108/71 06/04/17 15:38 Pulse Ox 96 06/04/17 15:38 - Labs Result Diagrams: 06/03/17 14:54 06/03/17 14:54 - EKG Data EKG Interpreted by: Myself Assessment & Plan (1) Chest pain Assessment and Plan: does not appear cardiac in origin. Status: Acute (2) GERD (gastroesophageal reflux disease) Assessment and Plan: recommend PPI therapy Status: Acute (3) History of pulmonary embolus (PE) Assessment and Plan: continue anticoagulant therapy Status: Chronic Priority: Low
[2017-06-05] MEDS: Fluticasone-Salmeterol 250-50mcg Diskus IH SCH ×2 (09:47→21:10)
[2017-06-05] MEDS: OLMESARTAN MED PO SCH (09:48)
[2017-06-05] MEDS: AMLODIPINE BES PO SCH (09:48)
[2017-06-05] MEDS: Pantoprazole 40 mg EC Tab PO SCH (09:49)
[2017-06-05] MEDS: Multivitamin With Minerals Tab PO SCH (09:50)
[2017-06-05] MEDS ORDERED: Barium Sulfate Susp 0.1% w/v, 0.1% w/w 450 mL Bottle PO ONE (10:29)
[2017-06-05] MEDS ORDERED: Barium Sulfate for Susp 98% w/w 340g Bottle ONE (10:29)
[2017-06-05] MEDS: Sucralfate 1 gm/10 ml Oral Susp UD PO SCH ×3 (12:51→22:39)
--- NOTE | 2017-06-05 14:49 | CP.PCM.PN ---
Subjective - Date & Time of Evaluation Date of Evaluation: 06/05/17 Time of Evaluation: 07:25 - Subjective Subjective: patient seen and examined with attending still c/o intermittent midsternal chest pain associated with meals patient denies chest pain, N/V, abdominal pain at this evaluation afebrile Objective - Vital Signs/Intake and Output Vital Signs (last 24 hours): Temp Pulse Resp BP Pulse Ox 98.3 F 94 H 18 121/78 94 L 06/05/17 13:55 06/05/17 13:55 06/05/17 13:55 06/05/17 13:55 06/05/17 13:55 - Medications Medications: Current Medications Albuterol (Ventolin Hfa 90 Mcg/Actuation (8 G)) 2 puff IH Q4H PRN PRN Reason: Shortness of Breath Albuterol/Ipratropium (Duoneb 3 Mg/0.5 Mg (3 Ml) Ud) 3 ml INH RQID PRN PRN Reason: Shortness of Breath Cholecalciferol (Vitamin D) 1,000 iu PO DAILY [facility] Last Admin: 06/05/17 09:50 Dose: 1,000 iu Clonidine HCl (Catapres) 0.1 mg PO DAILY PRN PRN Reason: High Blood Pressure Famotidine (Pepcid) 40 mg IVP DAILY [facility] Last Admin: 06/05/17 09:49 Dose: 40 mg Home Med (Amlodipine Bes/Olmesartan Med [Cony 5-40 Mg Tablet]) 1 tab PO DAILY [facility] Last Admin: 06/05/17 09:48 Dose: 1 tab Metoclopramide HCl (Reglan) 10 mg PO ACHS [facility] Last Admin: 06/05/17 12:30 Dose: 10 mg Montelukast Sodium (Singulair) 10 mg PO DAILY [facility] Last Admin: 06/05/17 09:50 Dose: 10 mg Multivitamins/Minerals (Therapeutic-M Tab) 1 tab PO DAILY [facility] Last Admin: 06/05/17 09:50 Dose: 1 tab Olanzapine (Zyprexa) 5 mg PO HS [facility] Last Admin: 06/04/17 21:12 Dose: 5 mg Ondansetron HCl (Zofran Inj) 4 mg IVP Q6 PRN PRN Reason: Nausea/Vomiting Last Admin: 06/04/17 10:42 Dose: 4 mg Pantoprazole Sodium (Protonix Ec Tab) 40 mg PO DAILY [facility] Last Admin: 06/05/17 09:49 Dose: 40 mg Paroxetine HCl (Paxil) 20 mg PO DAILY [facility] Last Admin: 06/05/17 09:48 Dose: 20 mg Rivaroxaban (Xarelto) 20 mg PO HS [facility] PRN Reason: Protocol Last Admin: 06/04/17 21:11 Dose: 20 mg Fluticasone/Salmeterol (Advair Diskus 250/50) 1 puff IH Q12H [facility] Last Admin: 06/05/17 09:47 Dose: 1 puff Sucralfate (Carafate Tab) 1 gm PO BID [facility] Sucralfate (Carafate Oral Susp) 1 gm PO QID [facility] Last Admin: 06/05/17 12:51 Dose: 1 gm Tramadol HCl (Ultram) 50 mg PO Q8 PRN PRN Reason: Pain, severe (8-10) Last Admin: 06/03/17 21:27 Dose: 50 mg Zolpidem Tartrate (Ambien) 5 mg PO HS PRN PRN Reason: Sleep Last Admin: 06/04/17 22:25 Dose: 5 mg - Labs Labs: PT 13.9 Seconds (9.8-13.1) H 06/03/17 14:54 INR 1.3 (0.9-1.2) H 06/03/17 14:54 APTT 30.9 Seconds (25.6-37.1) 06/03/17 14:54 - Additional Findings Additional findings: Constitutional Appears: No Acute Distress - ENT Exam ENT Exam: Mucous Membranes Moist - Respiratory Exam Respiratory Exam: Clear to Auscultation Bilateral, NORMAL BREATHING PATTERN - Cardiovascular Exam Cardiovascular Exam: REGULAR RHYTHM, +S1, +S2 - GI/Abdominal Exam GI & Abdominal Exam: Normal Bowel Sounds, Soft, no tender to palpation. absent : Distended, Guarding, Rigid, Tenderness - Extremities Exam Extremities exam: Positive for: normal inspection. Negative for: calf tenderness, pedal edema - Neurological Exam Neurological exam: Alert, Oriented x3 - Skin Skin Exam: Dry, Intact, Normal Color Assessment and Plan - Assessment and Plan (Free Text) Assessment: 56 y/o F with PMH including HTN, GERD, Intermittent asthma, DVT/PE admitted to telemetry with chest pain to r/o ACS. Plan: Midsternal chest pain -improving, but still present likely 2/2 GERD vs Gastritis -EKG showed no ST-T wave changes -Chest CT read as suboptimal eval for PE -c/w with PPI -c/w Pepcid -start Carafate PO -c/w Reglan 10 mg ACHS -zofran PRN for N/V -f/u Upper GI series -as per Cardiology does not appear cardiac in origin. -GI consult, f/u recommendations HTN -held home meds due to BP closed to low normal levels DVT prophylaxis c/w home Xarelto
[2017-06-05 16:26] VITALS: RESP 20
--- NOTE | 2017-06-06 00:42 | CP.PCM.PN ---
Subjective - Date & Time of Evaluation Date of Evaluation: 06/05/17 Time of Evaluation: 18:00 - Subjective Subjective: pain improved Objective - Vital Signs/Intake and Output Vital Signs (last 24 hours): Temp Pulse Resp BP Pulse Ox 98.7 F 82 20 110/70 98 06/06/17 00:14 06/06/17 00:14 06/06/17 00:14 06/06/17 00:14 06/06/17 00:14 Intake and Output: 06/05/17 06/06/17 18:59 06:59 Intake Total 1200 Balance 1200 - Medications Medications: Current Medications Albuterol (Ventolin Hfa 90 Mcg/Actuation (8 G)) 2 puff IH Q4H PRN PRN Reason: Shortness of Breath Albuterol/Ipratropium (Duoneb 3 Mg/0.5 Mg (3 Ml) Ud) 3 ml INH RQID PRN PRN Reason: Shortness of Breath Cholecalciferol (Vitamin D) 1,000 iu PO DAILY [facility] Last Admin: 06/05/17 09:50 Dose: 1,000 iu Clonidine HCl (Catapres) 0.1 mg PO DAILY PRN PRN Reason: High Blood Pressure Famotidine (Pepcid) 40 mg IVP DAILY [facility] Last Admin: 06/05/17 09:49 Dose: 40 mg Home Med (Amlodipine Bes/Olmesartan Med [Cony 5-40 Mg Tablet]) 1 tab PO DAILY [facility] Last Admin: 06/05/17 09:48 Dose: 1 tab Metoclopramide HCl (Reglan) 10 mg PO ACHS [facility] Last Admin: 06/05/17 21:11 Dose: 10 mg Montelukast Sodium (Singulair) 10 mg PO DAILY [facility] Last Admin: 06/05/17 09:50 Dose: 10 mg Multivitamins/Minerals (Therapeutic-M Tab) 1 tab PO DAILY [facility] Last Admin: 06/05/17 09:50 Dose: 1 tab Olanzapine (Zyprexa) 5 mg PO HS [facility] Last Admin: 06/05/17 21:11 Dose: 5 mg Ondansetron HCl (Zofran Inj) 4 mg IVP Q6 PRN PRN Reason: Nausea/Vomiting Last Admin: 06/04/17 10:42 Dose: 4 mg Pantoprazole Sodium (Protonix Ec Tab) 40 mg PO DAILY [facility] Last Admin: 06/05/17 09:49 Dose: 40 mg Paroxetine HCl (Paxil) 20 mg PO DAILY [facility] Last Admin: 06/05/17 09:48 Dose: 20 mg Rivaroxaban (Xarelto) 20 mg PO HS [facility] PRN Reason: Protocol Last Admin: 06/05/17 21:11 Dose: 20 mg Fluticasone/Salmeterol (Advair Diskus 250/50) 1 puff IH Q12H [facility] Last Admin: 06/05/17 21:10 Dose: 1 puff Sucralfate (Carafate Tab) 1 gm PO BID [facility] Last Admin: 06/05/17 16:38 Dose: Not Given Sucralfate (Carafate Oral Susp) 1 gm PO QID [facility] Last Admin: 06/05/17 22:39 Dose: 1 gm Tramadol HCl (Ultram) 50 mg PO Q8 PRN PRN Reason: Pain, severe (8-10) Last Admin: 06/03/17 21:27 Dose: 50 mg Zolpidem Tartrate (Ambien) 5 mg PO HS PRN PRN Reason: Sleep Last Admin: 06/05/17 21:11 Dose: 5 mg - Labs Labs: PT 13.9 Seconds (9.8-13.1) H 06/03/17 14:54 INR 1.3 (0.9-1.2) H 06/03/17 14:54 APTT 30.9 Seconds (25.6-37.1) 06/03/17 14:54 - GI/Abdominal Exam GI & Abdominal Exam: Soft, Normal Bowel Sounds Assessment and Plan - Assessment and Plan (Free Text) Assessment: 56 yo female with abd pain doing well on antacids sonogram pending if pain improved and tolerating diet can follow up with me for outpatient egd
--- NOTE | 2017-06-06 08:39 | RAD ---
PROCEDURE: Upper GI with small bowel series. HISTORY: Intractable GERD COMPARISON: Comparison is made to the previous CT of the chest dated 06/03/2017 CT of the abdomen and pelvis dated 09/05/2016. TECHNIQUE: Fluoroscopic evaluation of the stomach and small bowel was performed following administration of oral contrast. FINDINGS: Esophagus: Unremarkable, without gross mucosal abnormality, mass lesion, stricture or obstruction. Hiatal hernia: None. Reflux: [id number] gastroesophageal reflux is noted. Stomach: Rapid transit of the contrast in the small bowel. The contrast reached the large bowel after approximately 30 minute from the oral contrast administration, otherwise without gross mucosal abnormality, ulceration, mass lesion or outlet obstruction. Small bowel: Unremarkable, without gross mucosal abnormality, mass lesion, obstruction or tethering. IVC filter seen in place. IMPRESSION: [id number] gastroesophageal reflux is noted. Rapid transit of the contrast in the small bowel (30 minutes). Otherwise grossly unremarkable study.
[2017-06-06] MEDS: Fluticasone-Salmeterol 250-50mcg Diskus IH SCH (09:07)
[2017-06-06] MEDS: Sucralfate 1 gm/10 ml Oral Susp UD PO SCH ×2 (09:08→12:09)
[2017-06-06] MEDS: Multivitamin With Minerals Tab PO SCH ×2 (09:08→12:11)
[2017-06-06] MEDS: AMLODIPINE BES PO SCH ×2 (09:08→12:20)
[2017-06-06] MEDS: OLMESARTAN MED PO SCH ×2 (09:08→12:20)
--- NOTE | 2017-06-06 10:43 | CP.PCM.DIS ---
Provider - Provider Date of Admission: 06/04/17 16:28 Attending physician: Damian Garcia MD Hospital Course - Lab Results Lab Results: Most Recent Lab Values WBC 8.3 K/uL (4.8-10.8) 06/03/17 14:54 RBC 4.28 Mil/uL (3.80-5.20) 06/03/17 14:54 Hgb 13.0 g/dL (12.0-16.0) 06/03/17 14:54 Hct 38.8 % (34.0-47.0) 06/03/17 14:54 MCV 90.5 fl (81.0-99.0) 06/03/17 14:54 MCH 30.3 pg (27.0-31.0) 06/03/17 14:54 MCHC 33.5 g/dL (33.0-37.0) 06/03/17 14:54 RDW 13.9 % (11.5-14.5) 06/03/17 14:54 Plt Count 296 K/uL (130-400) 06/03/17 14:54 MPV 8.3 fl (7.2-11.7) 06/03/17 14:54 Neut % (Auto) 74.6 % (50.0-75.0) 06/03/17 14:54 Lymph % (Auto) 17.3 % (20.0-40.0) L 06/03/17 14:54 [place] % (Auto) 6.2 % (0.0-10.0) 06/03/17 14:54 Eos % (Auto) 0.9 % (0.0-4.0) 06/03/17 14:54 Baso % (Auto) 1.0 % (0.0-2.0) 06/03/17 14:54 Neut # 6.2 K/uL (1.8-7.0) 06/03/17 14:54 Lymph # 1.4 K/uL (1.0-4.3) 06/03/17 14:54 [place] # 0.5 K/uL (0.0-0.8) 06/03/17 14:54 Eos # 0.1 K/uL (0.0-0.7) 06/03/17 14:54 Baso # 0.1 K/uL (0.0-0.2) 06/03/17 14:54 PT 13.9 Seconds (9.8-13.1) H 06/03/17 14:54 INR 1.3 (0.9-1.2) H 06/03/17 14:54 APTT 30.9 Seconds (25.6-37.1) 06/03/17 14:54 D-Dimer, Quantitative < 200 ng/mlDDU (0-230) 06/03/17 14:54 Sodium 139 mmol/l (132-148) 06/03/17 14:54 Potassium 3.7 MMOL/L (3.6-5.0) 06/03/17 14:54 Chloride 105 mmol/L (98-107) 06/03/17 14:54 Carbon Dioxide 24 mmol/L (22-30) 06/03/17 14:54 Anion Gap 14 (10-20) 06/03/17 14:54 BUN 8 mg/dl (7-17) 06/03/17 14:54 Creatinine 0.8 mg/dL (0.7-1.2) 06/03/17 14:54 Est GFR ( Amer) > 60 06/03/17 14:54 Est GFR (Non-Af Amer) > 60 06/03/17 14:54 Random Glucose 144 mg/dL (65-105) H 06/03/17 14:54 Calcium 9.6 mg/dL (8.4-10.2) 06/03/17 14:54 Total Bilirubin 0.7 mg/dl (0.2-1.3) 06/03/17 14:54 AST 22 U/L (14-36) 06/03/17 14:54 ALT 39 U/L (9-52) 06/03/17 14:54 Alkaline Phosphatase 124 U/L (38-126) 06/03/17 14:54 Troponin I < 0.0120 ng/mL (0.00-0.120) 06/04/17 05:20 Total Protein 7.1 G/DL (6.3-8.2) 06/03/17 14:54 Albumin 4.0 g/dL (3.5-5.0) 06/03/17 14:54 Globulin 3.1 gm/dL (2.2-3.9) 06/03/17 14:54 Albumin/Globulin Ratio 1.3 (1.0-2.1) 06/03/17 14:54 Lipase 49 U/L (23-300) 06/03/17 14:54 Urine Color Yellow (YELLOW) 06/03/17 14:47 Urine Clarity Cloudy (Clear) 06/03/17 14:47 Urine pH 8.0 (5.0-8.0) 06/03/17 14:47 Ur Specific [place] 1.012 (1.003-1.030) 06/03/17 14:47 Urine Protein 30 mg/dL (NEGATIVE) 06/03/17 14:47 Urine Glucose (UA) Neg mg/dL (Normal) 06/03/17 14:47 Urine Ketones Trace mg/dL (NEGATIVE) 06/03/17 14:47 Urine Blood Negative (NEGATIVE) 06/03/17 14:47 Urine Nitrate Negative (NEGATIVE) 06/03/17 14:47 Urine Bilirubin Negative (NEGATIVE) 06/03/17 14:47 Urine Urobilinogen 0.2-1.0 mg/dL (0.2-1.0) 06/03/17 14:47 Ur Leukocyte Esterase Neg [place]/uL (Negative) 06/03/17 14:47 Urine RBC (Auto) 1 /hpf (0-3) 06/03/17 14:47 Urine Microscopic WBC 1 /hpf (0-5) 06/03/17 14:47 Ur Squamous Epith Cells 8 /hpf (0-5) H 06/03/17 14:47 Urine Opiates Screen Negative (NEGATIVE) 06/03/17 15:30 Urine Methadone Screen Negative (NEGATIVE) 06/03/17 15:30 Ur Barbiturates Screen Negative (NEGATIVE) 06/03/17 15:30 Ur Phencyclidine Scrn Negative (NEGATIVE) 06/03/17 15:30 Ur Amphetamines Screen Negative (NEGATIVE) 06/03/17 15:30 U Benzodiazepines Scrn Negative (NEGATIVE) 06/03/17 15:30 U Oth Cocaine Metabols Negative (NEGATIVE) 06/03/17 15:30 U Cannabinoids Screen Negative (NEGATIVE) 06/03/17 15:30 - Hospital Course Hospital Course: This is a 56 y/o Female admitted for chest pain and reflux symptoms. Discharge Exam - Head Exam Head Exam: NORMAL INSPECTION Discharge Plan - Follow Up Plan Condition: STABLE Disposition: HOME/ ROUTINE
[2017-06-06] MEDS: Pantoprazole 40 mg EC Tab PO SCH (12:10)
[2017-06-06 12:58] VITALS: BP 146/84; PULSE 89; TEMP 97.7; O2SAT 96
--- NOTE | 2017-06-06 13:34 | US ---
HISTORY: Chest pain COMPARISON: None. TECHNIQUE: Sonographic evaluation of the abdomen. FINDINGS: LIVER: Measures 19.4 cm. Patent portal vein. Portal venous flow: Hepatopetal. Unremarkeable echogenicity of the liver parenchyma. No mass. No intrahepatic bile duct dilatation. GALLBLADDER: Status post cholecystectomy. No abnormality is seen in the gallbladder fossa. COMMON BILE DUCT: Measures 5.6 mm. No stones. No dilatation. PANCREAS: Unremarkable as visualized. No mass. No ductal dilatation. RIGHT KIDNEY: Measures 5.3 x 11cm. Normal echogenicity. No calculus, mass, or hydronephrosis. LEFT KIDNEY: Measures 5.6 x 11.2cm. Normal echogenicity. No calculus, mass, or hydronephrosis. SPLEEN: Normal in size and contour. No mass. AORTA: No aneurysmal dilatation. IVC: Unremarkable. OTHER FINDINGS: None. IMPRESSION: No significant or acute findings to account for/ related to the clinical presentation.
--- NOTE | 2017-06-06 15:22 | CP.PCM.PN ---
Subjective - Date & Time of Evaluation Date of Evaluation: 06/06/17 Time of Evaluation: 15:20 - Subjective Subjective: doing well Objective - Vital Signs/Intake and Output Vital Signs (last 24 hours): Temp Pulse Resp BP Pulse Ox 97.7 F 89 20 146/84 96 06/06/17 12:00 06/06/17 12:00 06/06/17 12:00 06/06/17 12:00 06/06/17 12:00 - Medications Medications: Current Medications Albuterol (Ventolin Hfa 90 Mcg/Actuation (8 G)) 2 puff IH Q4H PRN PRN Reason: Shortness of Breath Albuterol/Ipratropium (Duoneb 3 Mg/0.5 Mg (3 Ml) Ud) 3 ml INH RQID PRN PRN Reason: Shortness of Breath Cholecalciferol (Vitamin D) 1,000 iu PO DAILY [facility] Last Admin: 06/06/17 12:10 Dose: 1,000 iu Clonidine HCl (Catapres) 0.1 mg PO DAILY PRN PRN Reason: High Blood Pressure Famotidine (Pepcid) 40 mg IVP DAILY [facility] Last Admin: 06/06/17 09:07 Dose: 40 mg Home Med (Amlodipine Bes/Olmesartan Med [Cony 5-40 Mg Tablet]) 1 tab PO DAILY [facility] Last Admin: 06/06/17 12:20 Dose: 1 tab Metoclopramide HCl (Reglan) 10 mg PO ACHS [facility] Last Admin: 06/06/17 12:09 Dose: 10 mg Montelukast Sodium (Singulair) 10 mg PO DAILY [facility] Last Admin: 06/06/17 12:10 Dose: 10 mg Multivitamins/Minerals (Therapeutic-M Tab) 1 tab PO DAILY [facility] Last Admin: 06/06/17 12:11 Dose: 1 tab Olanzapine (Zyprexa) 5 mg PO HS [facility] Last Admin: 06/05/17 21:11 Dose: 5 mg Ondansetron HCl (Zofran Inj) 4 mg IVP Q6 PRN PRN Reason: Nausea/Vomiting Last Admin: 06/04/17 10:42 Dose: 4 mg Pantoprazole Sodium (Protonix Ec Tab) 40 mg PO DAILY [facility] Last Admin: 06/06/17 12:10 Dose: 40 mg Paroxetine HCl (Paxil) 20 mg PO DAILY [facility] Last Admin: 06/06/17 12:10 Dose: 20 mg Rivaroxaban (Xarelto) 20 mg PO HS YA PRN Reason: Protocol Last Admin: 06/05/17 21:11 Dose: 20 mg Fluticasone/Salmeterol (Advair Diskus 250/50) 1 puff IH Q12H [facility] Last Admin: 06/06/17 09:07 Dose: 1 puff Sucralfate (Carafate Tab) 1 gm PO BID [facility] Last Admin: 06/06/17 09:08 Dose: Not Given Sucralfate (Carafate Oral Susp) 1 gm PO QID [facility] Last Admin: 06/06/17 12:09 Dose: 1 gm Tramadol HCl (Ultram) 50 mg PO Q8 PRN PRN Reason: Pain, severe (8-10) Last Admin: 06/03/17 21:27 Dose: 50 mg Zolpidem Tartrate (Ambien) 5 mg PO HS PRN PRN Reason: Sleep Last Admin: 06/05/17 21:11 Dose: 5 mg - Labs Labs: PT 13.9 Seconds (9.8-13.1) H 06/03/17 14:54 INR 1.3 (0.9-1.2) H 06/03/17 14:54 APTT 30.9 Seconds (25.6-37.1) 06/03/17 14:54 - GI/Abdominal Exam GI & Abdominal Exam: Soft, Normal Bowel Sounds Assessment and Plan - Assessment and Plan (Free Text) Assessment: 56 yo female with abd pain imaging noted dc planning outpt egd
--- NOTE | 2017-06-09 09:00 | CON ---
DATE: 06/04/2017 REASON FOR CONSULTATION: Bilateral pain. HISTORY OF PRESENT ILLNESS: This is a very pleasant 56-year-old female with history of DVTs, PE, status post IVC filters and was brought in for the ER yesterday for abdominal pain, chest pain, sternal pain, some discomfort as well. This has been getting worse in the past few weeks. Had an endoscopy sometime recently, which showed no other findings. The patient also had worsening pain. lying and made comfortable, in no apparent distress. PAST MEDICAL HISTORY: As above. PAST SURGICAL HISTORY: As above. MEDICATIONS: Have been reviewed. REVIEW OF SYSTEMS: Have been reviewed, negative apart from HPI. PHYSICAL EXAMINATION: VITAL SIGNS: Here in the hospital, grossly unremarkable. GENERAL: Pleasant, middle-aged female, lying comfortable, no apparent distress. HEENT: Head is normocephalic and atraumatic. Eyes; pupils equal, round, and reactive to light bilaterally. No conjunctival pallor or icterus. NECK: Supple. Normal range of motion. No lymphadenopathy appreciated. LUNGS: Coarse breath sounds bilaterally. HEART: S1 and S2. Regular rate and rhythm. No murmurs appreciated. ABDOMEN: Soft and nontender. Bowel sounds present. Some discomfort in the epigastric region. No rebound. No guarding. RECTAL: Deferred. EXTREMITIES: Pulses felt bilaterally. SKIN: Warm, dry, and intact. LABORATORY DATA: All labs and all the radiology have been reviewed. Labs include WBC of 8.8 and hemoglobin 13.0. INR 1.3. LFTs are essentially normal. Utox also was negative. ASSESSMENT AND PLAN: This is an 56-year-old female with abdominal pain and discomfort. I put her on PPIs and H2 blockers. Recommend an upper GI series as well sonogram. Can follow up with me in the office as an outpatient once all is resolved. Vj Suárez MD/ PhD cc: Damian Garcia MD [facility]
--- NOTE | 2017-06-09 15:19 | PQF CHESTP ---
Dr. Garcia pt was admitted with chest pain. If known what is the source or cause ? This form is a permanent part of the medical record There is clinical documentation of CHEST PAIN with evaluation, treatment, and / or monitoring present in the medical record. Please clarify the possible / probable cause of CHEST PAIN. Source Documentation: Chart Location: [] Progress Notes [] Consults [] Radiology Results Date: [] Date: [] Date:[] ED Records: [] H&P: [] Other: [] PHYSICIAN RESPONSE CAUSE OF CHEST PAIN: PLease Check [] Documentation: [] Musculoskeletal Chest Pain [] Costochondritis [] Gastroesophageal Reflux Disease (GERD) [] Acute Gastritis [] Other [] [] Unknown [] In responding to this query, please exercise your independent professional judgment. The fact that a question is asked does not imply that any particular answer is desired or expected. Thank you for your clarification on this documentation. If you have any questions please call:[ ] * Thank you, [ ]Gertrude Carlson parts puller CHRIS
== END 2017-06-06 15:30 | disposition home or self-care (01) | DRG 392 ==
LOC: H.ER 13:32 → H.ERHOLD 17:24 → H.TEL 19:43 → OBSVTOIN 06-04 16:28
PROVIDERS: ADMIT Family Medicine; ATTEND Family Medicine
DX: K21.9 Gastro-esophageal reflux disease without esophagitis (principal); I10 Essential (primary) hypertension; R07.89 Other chest pain; J45.20 Mild intermittent asthma, uncomplicated; J44.9 Chronic obstructive pulmonary disease, unspecified; Z86.711 Personal history of pulmonary embolism; Z86.718 Personal history of other venous thrombosis and embolism; F32.9 Major depressive disorder, single episode, unspecified; K29.70 Gastritis, unspecified, without bleeding; G89.29 Other chronic pain; R10.13 Epigastric pain; E09.9 Drug or chemical induced diabetes mellitus without complications; T38.0X5A Adverse effect of glucocorticoids and synthetic analogues, initial encounter; F41.9 Anxiety disorder, unspecified

== ENCOUNTER 2017-09-05 19:32 | Emergency (ER) | payer OTHER ==
[2017-09-05 19:32] VITALS: BMI 39.9
[2017-09-05 19:41] VITALS: BP 174/94; PULSE 86; RESP 16; TEMP 98; O2SAT 96
[2017-09-05] MEDS ORDERED: Albuterol-Ipratrop 3 mg / 0.5 (3 ml) UD IH STA (19:52)
[2017-09-05] MEDS ORDERED: Albuterol-Ipratrop 3 mg / 0.5 (3 ml) UD ONE (19:58)
--- NOTE | 2017-09-05 20:12 | ED PDOC ---
HPI: SOB/CHF/COPD Time Seen by Provider: 09/05/17 19:48 Chief Complaint (Nursing): Shortness Of Breath Chief Complaint (Provider): Shortness of breath History Per: Patient History/Exam Limitations: no limitations Onset/Duration Of Symptoms: Days (x2 days) Current Symptoms Are (Timing): Still Present Associated Symptoms: denies: Fever, Productive Cough Additional Complaint(s): Helene Montgomery, a 56 year old female, with a past medical history of bronchitis, Emphysema, asthma and COPD presents to the ED with shortness of breath x2 days. Patient states he has had no improvement when using his inhalers at home. Denies cough, fever. PMD: Damian Schmidt Past Medical History Reviewed: Historical Data, Nursing Documentation, Vital Signs Vital Signs: Last Vital Signs Temp 98.0 F 09/05/17 19:41 Pulse 86 09/05/17 19:41 Resp 16 09/05/17 19:41 BP 174/94 H 09/05/17 19:41 Pulse Ox 96 09/05/17 20:22 - Medical History PMH: Anxiety, Arthritis, Asthma, Back Problems, Bronchitis, COPD, Depression, Diabetes (type II (steroid induced)), Deep Vein Thrombosis, Emphysema, Gastritis , GERD, Hiatal Hernia, HTN, Pneumonia, Pulmonary Embolism (2000, 2008), Chronic Pain Denies: CAD, Cardia Arrhythmia, CHF, Crohn's Disease, Dementia, Diverticulitis, Fractures, Gall Bladder Disease, Osteoporosis, Pancreatitis, Paranoia, Parkinson's Disease, Peripheral Edema, Post Traumatic Stress Disorder , Chronic Kidney Disease, Rheumatoid Arthritis, Schizophrenia, Seizures, Sickle Cell Disease, Sexually Transmitted Disease, TIA - Surgical History Surgical History: Cholecystectomy, Endoscopy, Denies: Appendectomy, CABG, Carotid Endarterectomy, Coronary Stent, Pacemaker , Tonsillectomy - Family History Family History: States: Unknown Family Hx - Immunization History Hx Tetanus Toxoid Vaccination: No Hx Influenza Vaccination: No Hx Pneumococcal Vaccination: No - Home Medications Home Medications: Ambulatory Orders Medication Instructions Recorded Montelukast [Singulair] 10 mg PO DAILY 09/02/16 Rivaroxaban [Xarelto] 20 mg PO HS 09/02/16 Albuterol HFA [Ventolin HFA 90 2 puff IH Q4H PRN 09/20/16 mcg/actuation (8 g)] Fluticasone/Salmeterol 250/50 1 puff IH Q12H 10/17/16 [Advair Diskus 250/50] Amlodipine Bes/Olmesartan Med 1 tab PO DAILY 06/03/17 [Cony 5-40 mg Tablet] Cholecalciferol [Vitamin D 1000 IU] 1,000 unit PO DAILY 06/03/17 Multivitamin/Iron/Folic Acid 1 tab PO DAILY 06/03/17 [Centrum Women Tablet] Olanzapine [Zyprexa] 5 mg PO HS 06/03/17 cloNIDine [Catapres] 0.1 mg PO DAILY PRN 06/03/17 Metoclopramide [Reglan] 10 mg PO ACHS #60 tab 06/06/17 PARoxetine [Paxil] 40 mg PO DAILY #30 tab 06/06/17 Pantoprazole [Protonix EC Tab] 40 mg PO DAILY #30 ect 06/06/17 Sucralfate [Carafate Tab] 1 gm PO BID #60 tab 06/06/17 Albuterol 0.083% [Albuterol 3 ml IH Q8 #1 neb 09/05/17 Sulfate 3 Ml] Albuterol HFA [Ventolin HFA 90 2 puff IH Q4H #1 puff 09/05/17 mcg/actuation (8 g)] predniSONE [predniSONE Tab] 10 mg PO TID #15 tab 09/05/17 - Allergies Allergies/Adverse Reactions: Allergies Allergy/AdvReac Type Severity Reaction Status Date / Time ketorolac tromethamine AdvReac bleeding Verified 09/05/17 19:41 [From Toradol] NSAIDS (Non-Steroidal AdvReac bleeding Verified 02/17/17 15:56 Anti-Inflamma lactose intolerance AdvReac SWELLING Uncoded 02/17/17 15:56 Review of Systems ROS Statement: Except As Marked, All Systems Reviewed And Found Negative Constitutional: Negative for: Fever Respiratory: Positive for: Shortness of Breath. Negative for: Cough Physical Exam - Reviewed Nursing Documentation Reviewed: Yes Vital Signs Reviewed: Yes - Physical Exam Appears: Positive for: Non-toxic, No Acute Distress Head Exam: Positive for: ATRAUMATIC, NORMAL INSPECTION, NORMOCEPHALIC Skin: Positive for: Normal Color, Warm, Dry. Negative for: Rash Eye Exam: Positive for: Normal appearance, EOMI, PERRL. Negative for: Nystagmus ENT: Positive for: Normal ENT Inspection. Negative for: Nasal Congestion, Tonsillar Exudate Neck: Positive for: Normal, Painless ROM, Supple Cardiovascular/Chest: Positive for: Regular Rate, Rhythm, Chest Non Tender. Negative for: Tachycardia Respiratory: Positive for: Decreased Breath Sounds (Minimal diminished breath sounds ). Negative for: Rales, Rhonchi, Wheezing, Respiratory Distress Gastrointestinal/Abdominal: Positive for: Normal Exam, Bowel Sounds, Soft. Negative for: Tenderness, Mass, Guarding, Rebound Back: Positive for: Normal Inspection. Negative for: L CVA Tenderness, R CVA Tenderness Neurologic/Psych: Positive for: Alert, Oriented, Gait - ECG O2 Sat by Pulse Oximetry: 96 (RA) Pulse Ox Interpretation: Normal Medical Decision Making Medical Decision Makin Initial Impression 56 y/o female presenting with shortness of breath Initial plan: * Chest x-ray * Albuterol 3mL IH * Peak Flow pre/post .tx * Reevaluation Scribe Attestation Documented by Shirley Dang acting as a scribe for Fred Archuleta MD. Provider Attestation All medical record entries made by the Scribe were at my direction and personally dictated by me. I have reviewed the chart and agree that the record accurately reflects my personal performance of the history, physical exam, medical decision making, and the department course for this patient. I have also personally directed, reviewed, and agree with the discharge instructions and disposition. Disposition - Clinical Impression Clinical Impression: Asthma - Patient ED Disposition Is Patient to be Admitted: No Counseled Patient/Family Regarding: Studies Performed, Diagnosis, Need For Followup, Rx Given - Disposition Disposition: Routine/Home Disposition Time: 20:34 Condition: FAIR Prescriptions: Albuterol 0.083% [Albuterol Sulfate 3 Ml] 3 ml IH Q8 #1 neb Albuterol HFA [Ventolin HFA 90 mcg/actuation (8 g)] 2 puff IH Q4H #1 puff predniSONE [predniSONE Tab] 10 mg PO TID #15 tab Instructions: Asthma (ED) Forms: [employer] (Turkmen)
--- NOTE | 2017-09-06 10:07 | RAD ---
HISTORY: sob COMPARISON: Chest radiograph 06/03/2017. TECHNIQUE: Chest PA and lateral FINDINGS: LUNGS: No definitive alveolar infiltrate is appreciated, however, linear atelectasis appreciate the medial right lateral left basis. PLEURA: No significant pleural effusion identified. No pneumothorax apparent. CARDIOVASCULAR: Normal. OSSEOUS STRUCTURES: Scoliotic thoracic spinal deformity again evident. VISUALIZED UPPER ABDOMEN: Normal. OTHER FINDINGS: None. IMPRESSION: Limited linear atelectasis seen at the bilateral lung bases which are otherwise clear. No pleural effusion or pneumothorax bilaterally.
== END 2017-09-05 20:56 | disposition home or self-care (01) ==
LOC: H.ER 19:32
DX: J45.909 Unspecified asthma, uncomplicated (principal)

== ENCOUNTER 2017-10-15 15:20 | Emergency (ER) | payer OTHER ==
[2017-10-15 15:21] VITALS: BMI 39.9
[2017-10-15 15:27] VITALS: BP 163/85; PULSE 84; RESP 19; TEMP 97.6; O2SAT 100
--- NOTE | 2017-10-15 16:02 | ED PDOC ---
HPI: Eye Injury/Pain Time Seen by Provider: 10/15/17 16:00 Chief Complaint (Nursing): Eye Problem Chief Complaint (Provider): Left Eye Pain History Per: Patient History/Exam Limitations: no limitations Onset/Duration Of Symptoms: Days (x2) Current Symptoms Are (Timing): Still Present Injury To Eye?: No Severity: None Quality: "Pain" Associated Symptoms: Pain. denies: Decreased Vision, Swelling, Discharge From Eye Additional Complaint(s): 57 year old female who does not wear contacts presents to the ED complaining of left eye pain x2 days. The patient states that she feels as though something in her eye but no matter how much she rinses the eye the feeling still remains. She reports that she is unsure of whether or not she may have scratched her eye. Patient states that the pain is exacerbated by movement of the eye. PMD: Damian Schmidt Past Medical History Reviewed: Historical Data, Nursing Documentation, Vital Signs Vital Signs: Last Vital Signs Temp 97.6 F 10/15/17 15:24 Pulse 84 10/15/17 15:24 Resp 19 10/15/17 15:24 BP 163/85 H 10/15/17 15:24 Pulse Ox 100 10/15/17 15:24 - Medical History PMH: Anxiety, Arthritis, Asthma, Back Problems, Bronchitis, COPD, Depression, Diabetes (type II (steroid induced)), Deep Vein Thrombosis, Emphysema, Gastritis , GERD, Hiatal Hernia, HTN, Pneumonia, Pulmonary Embolism (2000, 2008), Chronic Pain Denies: CAD, Cardia Arrhythmia, CHF, Crohn's Disease, Dementia, Diverticulitis, Fractures, Gall Bladder Disease, Osteoporosis, Pancreatitis, Paranoia, Parkinson's Disease, Peripheral Edema, Post Traumatic Stress Disorder , Chronic Kidney Disease, Rheumatoid Arthritis, Schizophrenia, Seizures, Sickle Cell Disease, Sexually Transmitted Disease, TIA - Surgical History Surgical History: Cholecystectomy, Endoscopy, Denies: Appendectomy, CABG, Carotid Endarterectomy, Coronary Stent, Pacemaker , Tonsillectomy - Family History Family History: States: Unknown Family Hx - Social History Current smoker - smoking cessation education provided: No (Former Smoker) Ex-Smoker (has not smoked in the last 12 months): No Alcohol: None Drugs: Denies - Immunization History Hx Tetanus Toxoid Vaccination: No Hx Influenza Vaccination: No Hx Pneumococcal Vaccination: No - Home Medications Home Medications: Ambulatory Orders Medication Instructions Recorded Montelukast [Singulair] 10 mg PO DAILY 09/02/16 Rivaroxaban [Xarelto] 20 mg PO HS 09/02/16 Albuterol HFA [Ventolin HFA 90 2 puff IH Q4H PRN 09/20/16 mcg/actuation (8 g)] Fluticasone/Salmeterol 250/50 1 puff IH Q12H 10/17/16 [Advair Diskus 250/50] Amlodipine Bes/Olmesartan Med 1 tab PO DAILY 06/03/17 [Cony 5-40 mg Tablet] Cholecalciferol [Vitamin D 1000 IU] 1,000 unit PO DAILY 06/03/17 Multivitamin/Iron/Folic Acid 1 tab PO DAILY 06/03/17 [Centrum Women Tablet] Olanzapine [Zyprexa] 5 mg PO HS 06/03/17 cloNIDine [Catapres] 0.1 mg PO DAILY PRN 06/03/17 Metoclopramide [Reglan] 10 mg PO ACHS #60 tab 06/06/17 PARoxetine [Paxil] 40 mg PO DAILY #30 tab 06/06/17 Pantoprazole [Protonix EC Tab] 40 mg PO DAILY #30 ect 06/06/17 Sucralfate [Carafate Tab] 1 gm PO BID #60 tab 06/06/17 Albuterol 0.083% [Albuterol 3 ml IH Q8 #1 neb 09/05/17 Sulfate 3 Ml] Albuterol HFA [Ventolin HFA 90 2 puff IH Q4H #1 puff 09/05/17 mcg/actuation (8 g)] predniSONE [predniSONE Tab] 10 mg PO TID #15 tab 09/05/17 Tobramycin 0.3% [Tobrex] 0.5 in TOP BID #1 tube 10/15/17 - Allergies Allergies/Adverse Reactions: Allergies Allergy/AdvReac Type Severity Reaction Status Date / Time ketorolac tromethamine AdvReac bleeding Verified 10/15/17 15:27 [From Toradol] NSAIDS (Non-Steroidal AdvReac bleeding Verified 10/15/17 15:27 Anti-Inflamma lactose intolerance AdvReac SWELLING Uncoded 10/15/17 15:27 Review of Systems ROS Statement: Except As Marked, All Systems Reviewed And Found Negative Eyes: Positive for: Pain, Other (no discharge). Negative for: Vision Change ( No decreased vision or vision change), Redness Physical Exam - Reviewed Nursing Documentation Reviewed: Yes Vital Signs Reviewed: Yes - Physical Exam Appears: Positive for: Non-toxic, No Acute Distress Head Exam: Positive for: NORMAL INSPECTION Skin: Positive for: Normal Color, Warm, Dry. Negative for: Rash Eye Exam: Positive for: EOMI, PERRL. Negative for: Normal appearance (Corneal injury noted on the anterior aspect of left pupil; Visual acuity: 20/50-left, 20 /100-right , b/l 20/50) - ECG O2 Sat by Pulse Oximetry: 100 (RA) Pulse Ox Interpretation: Normal - Progress ED Course And Treament: d/w Dr. Erwin. Will see her tomorrow at 10am. Recommend tobradex ointment and eye patch Tobradex 3% ointment applied in ED. Medical Decision Making Medical Decision Makin Initial Impression 57 y/o female presenting with left eye pain Initial Plan: * Reevaluation [address] Erwin (opthamologist), who will organize out patient follow up. Documented by Shirley Dang acting as a scribe for Mal Marrero PA-C. All medical record entries made by the Scribe were at my direction and personally dictated by me. I have reviewed the chart and agree that the record accurately reflects my personal performance of the history, physical exam, medical decision making, and the department course for this patient. I have also personally directed, reviewed, and agree with the discharge instructions and disposition. Disposition - Clinical Impression Clinical Impression: Corneal injury - Patient ED Disposition Is Patient to be Admitted: No - Disposition Referrals: Ace Erwin MD [Staff Provider] - Disposition: Routine/Home Disposition Time: 17:30 Condition: FAIR Additional Instructions: F/U WITH DR. ERWIN TOMORROW 10 AM FOR EVALUATION OF CORNEAL INJURY. Prescriptions: Tobramycin 0.3% [Tobrex] 0.5 in TOP BID #1 tube Instructions: Corneal Abrasion (ED) Forms: [facility] (Kazakh), [facility] ED School/Work Excuse
[2017-10-15] MEDS ORDERED: Fluorescein 1 mg Ophthalmic Strip ONE (16:04)
[2017-10-15] MEDS ORDERED: Erythromycin 0.5% Ophth Oint 1 APPLIC/3.5 G OS ONE (16:18)
[2017-10-15] MEDS ORDERED: Tobramycin 0.3% OPH OINT OS STA (16:57)
== END 2017-10-15 17:41 | disposition home or self-care (01) ==
LOC: H.ER 15:20
DX: S05.02XA Injury of conjunctiva and corneal abrasion without foreign body, left eye, initial encounter (principal); Y92.89 Other specified places as the place of occurrence of the external cause

== ENCOUNTER 2017-11-11 00:36 | Emergency (ER) | payer OTHER ==
[2017-11-11 01:03] VITALS: BMI 43.5
[2017-11-11 01:07] VITALS: RESP 16; TEMP 97.9; O2SAT 97
--- NOTE | 2017-11-11 01:58 | ED PDOC ---
HPI: Chest Pain Chief Complaint (Provider): chest/rib pain History Per: Patient History/Exam Limitations: no limitations Onset/Duration Of Symptoms: Days (4) Current Symptoms Are (Timing): Still Present Exacerbating Factors: Turning, Movement, Other (to touch) Additional History Per: Patient <Charleen Rondon - Last Filed: 11/11/17 06:04> <Neal Schroeder - Last Filed: 11/11/17 06:12> Time Seen by Provider: 11/11/17 01:11 Chief Complaint (Nursing): Chest Pain Additional Complaint(s): 57 y/o female presents with chest/rib pain x 4 days. Patient states pain is worse to touch and with movement, and notes she has been coughing more than usual due to her allergies acting up. Patient notes history of costochondritis in past and states symptoms simliar but that she can not take NSAIDs and Tylenol did not help. Denies fever, shortness of breath, palpitations, abdominal pain, leg pain/swelling, recent travel. (Charleen Rondon) Past Medical History Reviewed: Historical Data, Nursing Documentation, Vital Signs - Medical History PMH: Anxiety, Arthritis, Asthma, Back Problems, Bronchitis, COPD, Depression, Diabetes (type II (steroid induced)), Deep Vein Thrombosis, Emphysema, Gastritis , GERD, Hiatal Hernia, HTN, Pneumonia, Pulmonary Embolism (2000, 2008), Chronic Pain Denies: CAD, Cardia Arrhythmia, CHF, Crohn's Disease, Dementia, Diverticulitis, Fractures, Gall Bladder Disease, Osteoporosis, Pancreatitis, Paranoia, Parkinson's Disease, Peripheral Edema, Post Traumatic Stress Disorder , Chronic Kidney Disease, Rheumatoid Arthritis, Schizophrenia, Seizures, Sickle Cell Disease, Sexually Transmitted Disease, TIA - Surgical History Surgical History: Cholecystectomy, Endoscopy, Denies: Appendectomy, CABG, Carotid Endarterectomy, Coronary Stent, Pacemaker , Tonsillectomy - Family History Family History: States: Unknown Family Hx - Immunization History Hx Tetanus Toxoid Vaccination: No Hx Influenza Vaccination: No Hx Pneumococcal Vaccination: No <Charleen Rondon - Last Filed: 11/11/17 06:04> <Neal Schroeder - Last Filed: 11/11/17 06:12> Vital Signs: Last Vital Signs Temp 97.9 F 11/11/17 01:03 Pulse 75 11/11/17 01:03 Resp 16 11/11/17 01:03 BP 133/74 11/11/17 01:03 Pulse Ox 97 11/11/17 06:05 - Home Medications Home Medications: Ambulatory Orders Medication Instructions Recorded Montelukast [Singulair] 10 mg PO DAILY 09/02/16 Rivaroxaban [Xarelto] 20 mg PO HS 09/02/16 Albuterol HFA [Ventolin HFA 90 2 puff IH Q4H PRN 09/20/16 mcg/actuation (8 g)] Fluticasone/Salmeterol 250/50 1 puff IH Q12H 10/17/16 [Advair Diskus 250/50] Amlodipine Bes/Olmesartan Med 1 tab PO DAILY 06/03/17 [Cony 5-40 mg Tablet] Cholecalciferol [Vitamin D 1000 IU] 1,000 unit PO DAILY 06/03/17 Multivitamin/Iron/Folic Acid 1 tab PO DAILY 06/03/17 [Centrum Women Tablet] Olanzapine [Zyprexa] 5 mg PO HS 06/03/17 cloNIDine [Catapres] 0.1 mg PO DAILY PRN 06/03/17 Metoclopramide [Reglan] 10 mg PO ACHS #60 tab 06/06/17 PARoxetine [Paxil] 40 mg PO DAILY #30 tab 06/06/17 Pantoprazole [Protonix EC Tab] 40 mg PO DAILY #30 ect 06/06/17 Sucralfate [Carafate Tab] 1 gm PO BID #60 tab 06/06/17 Albuterol 0.083% [Albuterol 3 ml IH Q8 #1 neb 09/05/17 Sulfate 3 Ml] Albuterol HFA [Ventolin HFA 90 2 puff IH Q4H #1 puff 09/05/17 mcg/actuation (8 g)] predniSONE [predniSONE Tab] 10 mg PO TID #15 tab 09/05/17 Tobramycin 0.3% [Tobrex] 0.5 in TOP BID #1 tube 10/15/17 - Allergies Allergies/Adverse Reactions: Allergies Allergy/AdvReac Type Severity Reaction Status Date / Time ketorolac tromethamine AdvReac bleeding Verified 11/11/17 01:03 [From Toradol] NSAIDS (Non-Steroidal AdvReac bleeding Verified 11/11/17 01:03 Anti-Inflamma lactose intolerance AdvReac SWELLING Uncoded 11/11/17 01:03 Review of Systems ROS Statement: Except As Marked, All Systems Reviewed And Found Negative Cardiovascular: Positive for: Chest Pain <Charleen Rondon - Last Filed: 11/11/17 06:04> Physical Exam - Reviewed Nursing Documentation Reviewed: Yes Vital Signs Reviewed: Yes - Physical Exam Appears: Positive for: Well, Non-toxic, No Acute Distress Head Exam: Positive for: ATRAUMATIC, NORMAL INSPECTION, NORMOCEPHALIC Skin: Positive for: Normal Color Eye Exam: Positive for: Normal appearance ENT: Positive for: Normal ENT Inspection Cardiovascular/Chest: Positive for: Regular Rate, Rhythm. Negative for: Chest Non Tender (tender to palpate mid sternum, left inferior ribs/intercostal spaces ; no edema,ecchymosis, flail chest noted) Respiratory: Positive for: Normal Breath Sounds Gastrointestinal/Abdominal: Positive for: Normal Exam Back: Positive for: Normal Inspection Extremity: Positive for: Normal ROM Neurologic/Psych: Positive for: Alert, Oriented <Charleen Rondon - Last Filed: 11/11/17 06:04> - Laboratory Results Result Diagrams: 11/11/17 02:34 11/11/17 02:34 - ECG ECG: Positive for: Viewed By Me (reviewed by ED attending) ECG Rhythm: Positive for: Sinus Rhythm O2 Sat by Pulse Oximetry: 97 - Radiology X-Ray: Viewed By Me X-Ray Interpretation: No Acute Disease <Charleen Rondon - Last Filed: 11/11/17 06:04> - Laboratory Results Result Diagrams: 11/11/17 02:34 11/11/17 02:34 <Neal Schroeder - Last Filed: 11/11/17 06:12> - Progress ED Course And Treament: labs, ekg, chest xray (Charleen Rondon) Disposition - Disposition Disposition Time: 06:04 Patient Signed Over To: Neal Schroeder Handoff Comments: pending labs, re-eval <Charleen Rondon - Last Filed: 11/11/17 06:04> - Disposition Disposition: Routine/Home <Neal Schroeder - Last Filed: 11/11/17 06:12> - Clinical Impression Clinical Impression: Left-sided chest wall pain - Disposition Referrals: Damian Garcia MD [Primary Care Provider] - Condition: STABLE Instructions: Costochondritis (ED) Addendum <Charleen Rondon - Last Filed: 11/11/17 06:04> <Neal Schroeder - Last Filed: 11/11/17 06:12> Addendum: 11/11/17 06:11 D-Dimer negative. Patient stable for discharge. Will d/c home. Return precautions discussed. (Neal Schroeder)
[2017-11-11 02:37] LABS: BASO # 0.1 K/uL (0.0-0.2); BASO % 0.9 % (0.0-2.0); EOS # 0.3 K/uL (0.0-0.7); EOS % 3.4 % (0.0-4.0); HEMOGLOBIN 12.5 g/dL (12.0-16.0); LYMPH # 1.8 K/uL (1.0-4.3); LYMPH % 23.9 % (20.0-40.0); MEAN CORPUSCULAR HEMOGLOBIN 28.1 pg (27.0-31.0); MEAN CORPUSCULAR HGB CONC 32.3 g/dL (33.0-37.0); MEAN PLATELET VOLUME 8.5 fl (7.2-11.7); MONO # 0.7 K/uL (0.0-0.8); MONO % 9.7 % (0.0-10.0); NEUT # 4.7 K/uL (1.8-7.0); NEUT % 62.1 % (50.0-75.0); NRBC % 0.1 % (0.0-0.0); RBC 4.44 Mil/uL (3.80-5.20); RED CELL DISTRIBUTION WIDTH 14.8 % (11.5-14.5); WHITE BLOOD COUNT 7.6 K/uL (4.8-10.8)
[2017-11-11 02:56] LABS: ALB/GLOB RATIO 1.2 (1.0-2.1); ALBUMIN 4.1 g/dL (3.5-5.0); ALT/SGPT 29 U/L (9-52); AST/SGOT 22 U/L (14-36); BLOOD UREA NITROGEN 19 mg/dl (7-17); CALCIUM 9.6 mg/dL (8.4-10.2); GFR AFRICAN-AMERICAN > 60; GFR NON-AFRICAN AMERICAN 57
[2017-11-11 06:29] VITALS: BP 128/76; PULSE 80
--- NOTE | 2017-11-11 08:43 | RAD ---
HISTORY: chest/left rib pain COMPARISON: Chest radiographs 09/05/2017 TECHNIQUE: Chest PA and lateral FINDINGS: LUNGS: No acute infiltrate identified bilaterally. Fibrotic changes at left base with questionable COPD present otherwise. PLEURA: No significant pleural effusion identified. No pneumothorax apparent. CARDIOVASCULAR: Normal. OSSEOUS STRUCTURES: No significant abnormalities. VISUALIZED UPPER ABDOMEN: Normal. OTHER FINDINGS: None. IMPRESSION: Likely COPD again evident. No acute infiltrate, pleural effusion or pneumothorax identified bilaterally. Left basilar fibrosis again noted.
--- NOTE | 2017-11-12 11:42 | CARD ---
APPROVED REPORT EKG Measurement Heart [id number] ID [id number] <Conclusion> Normal sinus rhythm Normal ECG
== END 2017-11-11 06:29 | disposition home or self-care (01) ==
LOC: H.ER 00:36
DX: R07.89 Other chest pain (principal); M94.0 Chondrocostal junction syndrome [Tietze]; I10 Essential (primary) hypertension; E11.9 Type 2 diabetes mellitus without complications; Z86.711 Personal history of pulmonary embolism; Z86.718 Personal history of other venous thrombosis and embolism; J44.9 Chronic obstructive pulmonary disease, unspecified; K21.9 Gastro-esophageal reflux disease without esophagitis; G89.29 Other chronic pain
CPT/HCPCS: 71046; 80053; 84484; 85025; 85378; 93005; 96374; 99282; J1885

== ENCOUNTER 2017-12-28 13:48 | Emergency (ER) | payer OTHER ==
[2017-12-28 13:48] VITALS: BMI 43.5
[2017-12-28 14:30] VITALS: BP 151/99; PULSE 125; RESP 16; TEMP 99; O2SAT 100
[2017-12-28] MEDS ORDERED: Alum-Mag Hydrox-Simethicone Susp (30 mL) PO STA (15:07)
[2017-12-28] MEDS ORDERED: Sodium Chloride 0.9% 1,000 ML IV STA (15:10)
--- NOTE | 2017-12-28 15:11 | ED PDOC ---
HPI: Abdomen Time Seen by Provider: 12/28/17 14:41 Chief Complaint (Nursing): Abdominal Pain Chief Complaint (Provider): abd pain History Per: Patient Additional Complaint(s): 57-year-old female with history of gastritis presents to emergency department with upper abdominal pain, nausea and vomiting that started 4 days ago. Patient states that she also had low-grade temperature yesterday. Patient's states she cannot tolerate liquids and solids orally. Patient denies consumption of any food that could've cause stomach upset. Patient takes Nexium 40 mg daily but this has not helped her symptoms. PMD: Dr. Garcia Past Medical History Reviewed: Historical Data, Nursing Documentation, Vital Signs Vital Signs: Last Vital Signs Temp 99.0 F 12/28/17 14:27 Pulse 125 H 12/28/17 14:27 Resp 16 12/28/17 14:27 BP 151/99 H 12/28/17 14:27 Pulse Ox 100 12/28/17 16:16 - Medical History PMH: Anxiety, Arthritis, Asthma, Back Problems, COPD, Depression, Diabetes ( type II (steroid induced)), Deep Vein Thrombosis, Emphysema, Gastritis, GERD, Hiatal Hernia, HTN, Pulmonary Embolism (2000, 2008), Chronic Pain - Surgical History Surgical History: Cholecystectomy, Endoscopy, - Family History Family History: States: No Known Family Hx - Living Arrangements Living Arrangements: With Family - Social History Current smoker - smoking cessation education provided: No Alcohol: None Drugs: Denies - Immunization History Hx Tetanus Toxoid Vaccination: No Hx Influenza Vaccination: No Hx Pneumococcal Vaccination: No - Home Medications Home Medications: Ambulatory Orders Medication Instructions Recorded Montelukast [Singulair] 10 mg PO DAILY 09/02/16 Rivaroxaban [Xarelto] 20 mg PO HS 09/02/16 Albuterol HFA [Ventolin HFA 90 2 puff IH Q4H PRN 09/20/16 mcg/actuation (8 g)] Fluticasone/Salmeterol 250/50 1 puff IH Q12H 10/17/16 [Advair Diskus 250/50] Amlodipine Bes/Olmesartan Med 1 tab PO DAILY 06/03/17 [Cony 5-40 mg Tablet] Cholecalciferol [Vitamin D 1000 IU] 1,000 unit PO DAILY 06/03/17 Multivitamin/Iron/Folic Acid 1 tab PO DAILY 06/03/17 [Centrum Women Tablet] Olanzapine [Zyprexa] 5 mg PO HS 06/03/17 cloNIDine [Catapres] 0.1 mg PO DAILY PRN 06/03/17 Metoclopramide [Reglan] 10 mg PO ACHS #60 tab 06/06/17 PARoxetine [Paxil] 40 mg PO DAILY #30 tab 06/06/17 Pantoprazole [Protonix EC Tab] 40 mg PO DAILY #30 ect 06/06/17 Sucralfate [Carafate Tab] 1 gm PO BID #60 tab 06/06/17 Albuterol 0.083% [Albuterol 3 ml IH Q8 #1 neb 09/05/17 Sulfate 3 Ml] Albuterol HFA [Ventolin HFA 90 2 puff IH Q4H #1 puff 09/05/17 mcg/actuation (8 g)] predniSONE [predniSONE Tab] 10 mg PO TID #15 tab 09/05/17 Tobramycin 0.3% [Tobrex] 0.5 in TOP BID #1 tube 10/15/17 Lidocaine 1 each TP DAILY #10 adh..patch 11/11/17 Dicyclomine [Bentyl] 10 mg PO QID PRN #30 cap 12/28/17 Famotidine [Pepcid] 20 mg PO BID #60 tab 12/28/17 Ondansetron [Zofran Odt] 4 mg PO ASDIR PRN #12 odt 12/28/17 - Allergies Allergies/Adverse Reactions: Allergies Allergy/AdvReac Type Severity Reaction Status Date / Time ketorolac tromethamine AdvReac bleeding Verified 12/28/17 14:27 [From Toradol] NSAIDS (Non-Steroidal AdvReac bleeding Verified 12/28/17 14:27 Anti-Inflamma lactose intolerance AdvReac SWELLING Uncoded 12/28/17 14:27 Review of Systems ROS Statement: Except As Marked, All Systems Reviewed And Found Negative Constitutional: Positive for: Fever (low grade temp yesterday as per patient) Cardiovascular: Negative for: Chest Pain Respiratory: Negative for: Cough Gastrointestinal: Positive for: Nausea, Vomiting, Abdominal Pain. Negative for : Diarrhea Genitourinary Female: Negative for: Dysuria, Vaginal Discharge, Vaginal Bleeding Neurological: Negative for: Headache, Dizziness Physical Exam - Reviewed Nursing Documentation Reviewed: Yes Vital Signs Reviewed: Yes - Physical Exam Appears: Positive for: Well, Non-toxic, No Acute Distress Skin: Negative for: Rash Eye Exam: Positive for: Normal appearance Cardiovascular/Chest: Positive for: Regular Rate, Rhythm Respiratory: Negative for: Respiratory Distress Gastrointestinal/Abdominal: Positive for: Soft, Other (Obese abdomen with mild left upper quadrant tenderness, no rebound or guarding) Back: Negative for: L CVA Tenderness, R CVA Tenderness Extremity: Positive for: Normal ROM Neurologic/Psych: Positive for: Alert, Oriented - Laboratory Results Result Diagrams: 12/28/17 15:35 12/28/17 15:35 Urine POC: Negative Urine dip results: Positive for: Leukocyte Esterase (trace). Negative for: Blood, Nitrate, Ketones, Glucose, Bilirubin, Protein - ECG Interpretation Of ECG: NSR 83 bpm, no acute finding, reviewed by PA and ED attending. O2 Sat by Pulse Oximetry: 100 Pulse Ox Interpretation: Normal - Other Rad CXR X-Ray: Interpreted by Me, Viewed By Me X-Ray Interpretation: no acute finding Medical Decision Making Medical Decision Makin-year-old female with abdominal pain Plan: CBC CMP Lipase Urine dip CXR EKG IVF PO pepcid and maalox PO tramadol IV zofran Patient feels much better after meds were given. Patient now tolerating liquids in ED with no further emesis or nausea. Patient is aware of all diagnostic testing results, all questions answered. Patient given prescriptions for Pepcid , Zofran and Bentyl. She was advised to follow up with PMD in 1-2 days. Disposition - Clinical Impression Clinical Impression: GERD (gastroesophageal reflux disease), Gastritis - Patient ED Disposition Is Patient to be Admitted: No Counseled Patient/Family Regarding: Studies Performed, Diagnosis, Need For Followup, Rx Given - Disposition Referrals: Damian Garcia MD [Staff Provider] - Disposition: Routine/Home Disposition Time: 16:27 Condition: IMPROVED Additional Instructions: Take prescription meds as directed. Continue with your current daily medications. Follow dietary instructions. Follow-up in one to 2 days with primary care doctor. Prescriptions: Dicyclomine [Bentyl] 10 mg PO QID PRN #30 cap PRN Reason: Gi Distress Famotidine [Pepcid] 20 mg PO BID #60 tab Ondansetron [Zofran Odt] 4 mg PO ASDIR PRN #12 odt PRN Reason: Nausea/Vomiting Instructions: Acid Reflux (Gastroesophageal Reflux Disease), Adult (DC), Gastritis, Ulcer and Gastritis Diet Forms: [employer] ([place]), [facility] ED School/Work Excuse Results - Lab Results Lab Results: 12/28/17 12/28/17 12/28/17 15:45 15:35 15:35 WBC 7.6 RBC 4.43 Hgb 12.6 Hct 38.2 MCV 86.1 MCH 28.4 MCHC 33.0 RDW 14.5 Plt Count 293 MPV 8.5 Neut % (Auto) 82.6 H Lymph % (Auto) 9.4 L [place] % (Auto) 5.5 Eos % (Auto) 1.2 Baso % (Auto) 1.3 Neut # (Auto) 6.3 Lymph # (Auto) 0.7 L [place] # (Auto) 0.4 Eos # (Auto) 0.1 Baso # (Auto) 0.1 Neutrophils % (Manual) 80 H Lymphocytes % (Manual) 10 L Monocytes % (Manual) 9 Eosinophils % (Manual) 1 Platelet Estimate Normal Large Platelets Present Hypochromasia (manual) Slight Anisocytosis (manual) Slight Tear Drop Cells Slight Sodium 142 Potassium 4.1 Chloride 102 Carbon Dioxide 27 Anion Gap 17 BUN 15 Creatinine 0.7 Est GFR ( Amer) > 60 Est GFR (Non-Af Amer) > 60 Random Glucose 162 H Calcium 9.4 Total Bilirubin 0.6 AST 28 ALT 23 Alkaline Phosphatase 89 Total Protein 8.0 Albumin 4.1 Globulin 3.9 Albumin/Globulin Ratio 1.1 Lipase 65 Urine Color Yellow Urine Clarity Slighty-cloudy Urine pH 6.0 Ur Specific [place] 1.025 Urine Protein 30 Urine Glucose (UA) Neg Urine Ketones Negative Urine Blood Negative Urine Nitrate Negative Urine Bilirubin Negative Urine Urobilinogen 0.2-1.0 Ur Leukocyte Esterase Trace Urine RBC (Auto) 3 Urine Microscopic WBC 1 Ur Squamous Epith Cells 5 Urine Bacteria Rare
[2017-12-28] MEDS ORDERED: Alum-Mag Hydrox-Simethicone Susp (30 mL) ONE (15:24)
[2017-12-28 15:41] LABS: BASO # 0.1 K/uL (0.0-0.2); BASO % 1.3 % (0.0-2.0); EOS # 0.1 K/uL (0.0-0.7); EOS % 1.2 % (0.0-4.0); HEMOGLOBIN 12.6 g/dL (12.0-16.0); LYMPH # 0.7 K/uL (1.0-4.3); LYMPH % 9.4 % (20.0-40.0); MEAN CELL VOLUME 86.1 fl (81.0-99.0); MEAN CORPUSCULAR HEMOGLOBIN 28.4 pg (27.0-31.0); MEAN PLATELET VOLUME 8.5 fl (7.2-11.7); MONO # 0.4 K/uL (0.0-0.8); MONO % 5.5 % (0.0-10.0); NEUT # 6.3 K/uL (1.8-7.0); NEUT % 82.6 % (50.0-75.0); PLATELET COUNT 293 K/uL (130-400); RBC 4.43 Mil/uL (3.80-5.20); RED CELL DISTRIBUTION WIDTH 14.5 % (11.5-14.5); WHITE BLOOD COUNT 7.6 K/uL (4.8-10.8)
[2017-12-28 15:53] LABS: ALB/GLOB RATIO 1.1 (1.0-2.1); ALBUMIN 4.1 g/dL (3.5-5.0); CALCIUM 9.4 mg/dL (8.4-10.2); GFR AFRICAN-AMERICAN > 60; GFR NON-AFRICAN AMERICAN > 60; LIPASE 65 U/L (23-300)
[2017-12-28 15:56] LABS: ALT/SGPT 23 U/L (9-52); AST/SGOT 28 U/L (14-36); BLOOD UREA NITROGEN 15 mg/dl (7-17)
[2017-12-28 16:01] LABS: SQUAMOUS EPITHIAL 5 /hpf (0-5); URINE BACTERIA RARE (<OCC); URINE BILIRUBIN NEGATIVE (NEGATIVE); URINE BLOOD NEGATIVE (NEGATIVE); URINE CLARITY SLIGHTY-CLOUDY (Clear); URINE COLOR YELLOW (YELLOW); URINE GLUCOSE (UA) NEG (Normal); URINE LEUKOCYTE ESTERASE TRACE Leu/uL (Negative); URINE PROTEIN 30 mg/dL (NEGATIVE); URINE UROBILINOGEN 0.2-1.0 mg/dL (0.2-1.0)
[2017-12-28 16:10] LABS: EOSINOPHIL 1 % (0-7); LYMPHOCYTE 10 % (20-50); MONOCYTE 9 % (0-10); NEUTROPHIL 80 % (42-75); PLATELET ESTIMATE NORMAL (NORMAL); TOTAL CELLS COUNTED 100
[2017-12-28 16:12] LABS: ANISOCYTOSIS SLIGHT
[2017-12-28 16:13] LABS: HYPOCHROMIC SLIGHT; LARGE PLATELETS PRESENT; TEARDROP CELLS SLIGHT
--- NOTE | 2017-12-28 16:32 | RAD ---
HISTORY: abd pain COMPARISON: No prior. FINDINGS: LUNGS: No active pulmonary disease. PLEURA: No significant pleural effusion identified, no pneumothorax apparent. CARDIOVASCULAR: Normal. OSSEOUS STRUCTURES: No significant abnormalities. VISUALIZED UPPER ABDOMEN: Normal. OTHER FINDINGS: None. IMPRESSION: No active disease.
--- NOTE | 2017-12-29 06:04 | CARD ---
APPROVED REPORT EKG Measurement Heart [id number] <Conclusion> Normal sinus rhythm Normal ECG
== END 2017-12-28 18:42 | disposition home or self-care (01) ==
LOC: H.ER 13:48
DX: K21.9 Gastro-esophageal reflux disease without esophagitis (principal); K29.70 Gastritis, unspecified, without bleeding; I10 Essential (primary) hypertension
CPT/HCPCS: 71045; 80053; 81003; 81025; 83690; 85025; 87086; 93005; 96374; 99283; J2405; J7040

== ENCOUNTER 2018-02-04 14:48 | Emergency (ER) | payer OTHER ==
[2018-02-04 14:49] VITALS: BMI 43.5
[2018-02-04 15:09] VITALS: BP 145/94; PULSE 86; RESP 16; TEMP 99; O2SAT 94
[2018-02-04] MEDS ORDERED: Fluorescein 1 mg Ophthalmic Strip ONE (15:59)
--- NOTE | 2018-02-04 17:54 | ED PDOC ---
HPI: Eye Injury/Pain Time Seen by Provider: 02/04/18 15:47 Chief Complaint (Nursing): Eye Problem Chief Complaint (Provider): Eye problem History Per: Patient History/Exam Limitations: no limitations Onset/Duration Of Symptoms: Days (x6) Current Symptoms Are (Timing): Still Present Wears Contact Lens?: No Associated Symptoms: Pain, Other (light sensitivity). denies: Decreased Vision Additional Complaint(s): Helene Alvarado is a 57 year old female, with a past medical history of pre- diabetes, HTN, PE, DVT, and asthma, who presents to the emergency department for bilateral eye pain onset x6 days ago. Patient reports on Friday she accidentally scratched her left eye, she developed pain the following day along with redness and light sensitivity. Patient states yesterday she developed symptoms to the right eye. She used Tobrex eye ointment to both eyes without relief. Patient states she had it from a previous eye infections. She denies any injuries, fever, visual changes, or contact lense use. No further medical complaints. PMD: None provided. Past Medical History Reviewed: Historical Data, Nursing Documentation, Vital Signs Vital Signs: Last Vital Signs Temp 99 F 02/04/18 15:05 Pulse 86 02/04/18 15:05 Resp 16 02/04/18 15:05 BP 145/94 H 02/04/18 15:05 Pulse Ox 94 L 02/04/18 15:05 - Medical History PMH: Anxiety, Arthritis, Asthma, Back Problems, Bronchitis, COPD, Depression, Diabetes (type II (steroid induced)), Deep Vein Thrombosis, Emphysema, Gastritis , GERD, Hiatal Hernia, HTN, Pneumonia, Pulmonary Embolism (2000, 2008), Chronic Pain Denies: CAD, Cardia Arrhythmia, CHF, Crohn's Disease, Dementia, Diverticulitis, Fractures, Gall Bladder Disease, Osteoporosis, Pancreatitis, Paranoia, Parkinson's Disease, Peripheral Edema, Post Traumatic Stress Disorder , Chronic Kidney Disease, Rheumatoid Arthritis, Schizophrenia, Seizures, Sickle Cell Disease, Sexually Transmitted Disease, TIA - Surgical History Surgical History: Cholecystectomy, Endoscopy, Denies: Appendectomy, CABG, Carotid Endarterectomy, Coronary Stent, Pacemaker , Tonsillectomy - Family History Family History: States: Unknown Family Hx - Social History Ex-Smoker (has not smoked in the last 12 months): Yes Alcohol: None Drugs: Denies - Immunization History Hx Tetanus Toxoid Vaccination: No Hx Influenza Vaccination: No Hx Pneumococcal Vaccination: No - Home Medications Home Medications: Ambulatory Orders Medication Instructions Recorded Montelukast [Singulair] 10 mg PO DAILY 09/02/16 Rivaroxaban [Xarelto] 20 mg PO HS 09/02/16 Albuterol HFA [Ventolin HFA 90 2 puff IH Q4H PRN 09/20/16 mcg/actuation (8 g)] Fluticasone/Salmeterol 250/50 1 puff IH Q12H 10/17/16 [Advair Diskus 250/50] Amlodipine Bes/Olmesartan Med 1 tab PO DAILY 06/03/17 [Cony 5-40 mg Tablet] Cholecalciferol [Vitamin D 1000 IU] 1,000 unit PO DAILY 06/03/17 Multivitamin/Iron/Folic Acid 1 tab PO DAILY 06/03/17 [Centrum Women Tablet] Olanzapine [Zyprexa] 5 mg PO HS 06/03/17 cloNIDine [Catapres] 0.1 mg PO DAILY PRN 06/03/17 Metoclopramide [Reglan] 10 mg PO ACHS #60 tab 06/06/17 PARoxetine [Paxil] 40 mg PO DAILY #30 tab 06/06/17 Pantoprazole [Protonix EC Tab] 40 mg PO DAILY #30 ect 06/06/17 Sucralfate [Carafate Tab] 1 gm PO BID #60 tab 06/06/17 Albuterol 0.083% [Albuterol 3 ml IH Q8 #1 neb 09/05/17 Sulfate 3 Ml] Albuterol HFA [Ventolin HFA 90 2 puff IH Q4H #1 puff 09/05/17 mcg/actuation (8 g)] predniSONE [predniSONE Tab] 10 mg PO TID #15 tab 09/05/17 Tobramycin 0.3% [Tobrex] 0.5 in TOP BID #1 tube 10/15/17 Lidocaine 1 each TP DAILY #10 adh..patch 11/11/17 Dicyclomine [Bentyl] 10 mg PO QID PRN #30 cap 12/28/17 Famotidine [Pepcid] 20 mg PO BID #60 tab 12/28/17 Ondansetron [Zofran Odt] 4 mg PO ASDIR PRN #12 odt 12/28/17 Ciprofloxacin 0.3% [Ciloxan 0.3% 1 - 2 drop BOTHEYES Q4H #1 bottle 02/04/18 Ophth SOLN] - Allergies Allergies/Adverse Reactions: Allergies Allergy/AdvReac Type Severity Reaction Status Date / Time ketorolac tromethamine AdvReac bleeding Verified 12/28/17 14:27 [From Toradol] NSAIDS (Non-Steroidal AdvReac bleeding Verified 12/28/17 14:27 Anti-Inflamma Review of Systems ROS Statement: Except As Marked, All Systems Reviewed And Found Negative Constitutional: Negative for: Fever, Chills Eyes: Positive for: Pain (b/l ), Redness, Other (light sensitivity). Negative for: Vision Change Physical Exam - Reviewed Nursing Documentation Reviewed: Yes Vital Signs Reviewed: Yes - Physical Exam Appears: Positive for: Non-toxic, No Acute Distress Head Exam: Positive for: ATRAUMATIC, NORMAL INSPECTION, NORMOCEPHALIC Skin: Positive for: Normal Color, Warm, Dry Eye Exam: Positive for: EOMI (w/o pain), PERRL, Conjunctival injection ( bilateral. Left > Right), Other (Fluorescein uptake in the left cornea at the 1 o'clock position; no hyphema). Negative for: Nystagmus, Periorbital swelling, Periorbital tenderness Neck: Positive for: Painless ROM Respiratory: Negative for: Respiratory Distress Extremity: Positive for: Normal ROM (upper and lower extremities). Negative for : Deformity, Swelling Neurologic/Psych: Positive for: Alert, Oriented - ECG O2 Sat by Pulse Oximetry: 94 (RA) Pulse Ox Interpretation: Normal Medical Decision Making Medical Decision Making: Initial Impression: Conjunctivitis Initial Plan: 16:35 -Upon provider reevaluation patient is feeling better, is medically stable, and requires no further treatment in the ED at this time. Patient will be discharged home with Rx for Ciloxan 0.3% Ophth SOLN. Counseling was provided and all questions were answered regarding diagnosis and need for follow up with shoulder joiner. There is agreement to discharge plan. Return if symptoms persist or worsen. ~ Scribe Attestation: Documented by Irineo Hernandez, acting as a scribe for Jero Rodrigues PA-C. Provider Scribe Attestation: All medical record entries made by the Scribe were at my direction and personally dictated by me. I have reviewed the chart and agree that the record accurately reflects my personal performance of the history, physical exam, medical decision making, and the department course for this patient. I have also personally directed, reviewed, and agree with the discharge instructions and disposition. Disposition - Clinical Impression Clinical Impression: Conjunctivitis, Corneal abrasion - Disposition Referrals: Marbin Luciano [Outside] Ace Erwin MD [Staff Provider] - Disposition Time: 16:35 Condition: STABLE Additional Instructions: Follow up with Dr. Erwin or your shoulder joiner for further evaluation. Return to ED if symptoms worsen. Prescriptions: Ciprofloxacin 0.3% [Ciloxan 0.3% Ophth SOLN] 1 - 2 drop BOTHEYES Q4H #1 bottle Instructions: Conjunctivitis ([place]) (DC), Corneal Abrasion (DC) Forms: [employer] ([place]), [facility] ED School/Work Excuse Print Language: YI
== END 2018-02-04 16:40 | disposition home or self-care (01) ==
LOC: H.ER 14:48
DX: H10.9 Unspecified conjunctivitis (principal)

== ENCOUNTER 2018-04-26 07:51 | Emergency (ER) | payer OTHER ==
[2018-04-26 07:52] VITALS: BMI 43.5
[2018-04-26 08:04] VITALS: RESP 20
[2018-04-26] MEDS ORDERED: Sodium Chloride 0.9% 1,000 ML IV STA (08:15)
--- NOTE | 2018-04-26 08:19 | ED PDOC ---
HPI: Headache Time Seen by Provider: 04/26/18 08:03 Chief Complaint (Nursing): Headache History Per: Patient Onset/Duration Of Symptoms: Days (4) Current Symptoms Are (Timing): Still Present Severity: Moderate Pain Scale Rating Of: 4 Quality: Aching Preceeding Symptoms: None Additional Complaint(s): Left sided headache x 4 days. Unrelieved by Tylenol and Tramadol. Denies injury or fever. No visual disturbances, No nausea no vomiting. No weakness or parasthesias. Past Medical History Vital Signs: Last Vital Signs Temp 97.7 F 04/26/18 08:01 Pulse 94 H 04/26/18 08:01 Resp 20 04/26/18 08:01 BP 135/89 04/26/18 08:01 Pulse Ox 98 04/26/18 08:01 - Medical History PMH: Anxiety, Arthritis, Asthma, Back Problems, Bronchitis, COPD, Depression, Diabetes (type II (steroid induced)), Deep Vein Thrombosis, Emphysema, Gastritis , GERD, Hiatal Hernia, HTN, Pneumonia, Pulmonary Embolism (2000, 2008), Chronic Pain Denies: CAD, Cardia Arrhythmia, CHF, Crohn's Disease, Dementia, Diverticulitis, Fractures, Gall Bladder Disease, Osteoporosis, Pancreatitis, Paranoia, Parkinson's Disease, Peripheral Edema, Post Traumatic Stress Disorder , Chronic Kidney Disease, Rheumatoid Arthritis, Schizophrenia, Seizures, Sickle Cell Disease, Sexually Transmitted Disease, TIA - Surgical History Surgical History: Cholecystectomy, Endoscopy, Denies: Appendectomy, CABG, Carotid Endarterectomy, Coronary Stent, Pacemaker , Tonsillectomy - Family History Family History: States: Unknown Family Hx - Immunization History Hx Tetanus Toxoid Vaccination: No Hx Influenza Vaccination: No Hx Pneumococcal Vaccination: No - Home Medications Home Medications: Ambulatory Orders Medication Instructions Recorded Montelukast [Singulair] 10 mg PO DAILY 09/02/16 Rivaroxaban [Xarelto] 20 mg PO HS 09/02/16 Albuterol HFA [Ventolin HFA 90 2 puff IH Q4H PRN 09/20/16 mcg/actuation (8 g)] Fluticasone/Salmeterol 250/50 1 puff IH Q12H 10/17/16 [Advair Diskus 250/50] Amlodipine Bes/Olmesartan Med 1 tab PO DAILY 06/03/17 [Cony 5-40 mg Tablet] Cholecalciferol [Vitamin D 1000 IU] 1,000 unit PO DAILY 06/03/17 Multivitamin/Iron/Folic Acid 1 tab PO DAILY 06/03/17 [Centrum Women Tablet] Olanzapine [Zyprexa] 5 mg PO HS 06/03/17 cloNIDine [Catapres] 0.1 mg PO DAILY PRN 06/03/17 Metoclopramide [Reglan] 10 mg PO ACHS #60 tab 06/06/17 PARoxetine [Paxil] 40 mg PO DAILY #30 tab 06/06/17 Pantoprazole [Protonix EC Tab] 40 mg PO DAILY #30 ect 06/06/17 Sucralfate [Carafate Tab] 1 gm PO BID #60 tab 06/06/17 Albuterol 0.083% [Albuterol 3 ml IH Q8 #1 neb 09/05/17 Sulfate 3 Ml] Albuterol HFA [Ventolin HFA 90 2 puff IH Q4H #1 puff 09/05/17 mcg/actuation (8 g)] predniSONE [predniSONE Tab] 10 mg PO TID #15 tab 09/05/17 Tobramycin 0.3% [Tobrex] 0.5 in TOP BID #1 tube 10/15/17 Lidocaine 1 each TP DAILY #10 adh..patch 11/11/17 Dicyclomine [Bentyl] 10 mg PO QID PRN #30 cap 12/28/17 Famotidine [Pepcid] 20 mg PO BID #60 tab 12/28/17 Ondansetron [Zofran Odt] 4 mg PO ASDIR PRN #12 odt 12/28/17 Ciprofloxacin 0.3% [Ciloxan 0.3% 1 - 2 drop BOTHEYES Q4H #1 bottle 02/04/18 Ophth SOLN] Acetaminophen/Butalbital/Caf 1 tab PO Q8 #10 tab 04/26/18 [Fioricet] - Allergies Allergies/Adverse Reactions: Allergies Allergy/AdvReac Type Severity Reaction Status Date / Time ketorolac tromethamine AdvReac bleeding Verified 04/26/18 08:01 [From Toradol] NSAIDS (Non-Steroidal AdvReac bleeding Verified 04/26/18 08:01 Anti-Inflamma Review of Systems Constitutional: Negative for: Fever Eyes: Negative for: Vision Change Musculoskeletal: Negative for: Neck Pain Neurological: Positive for: Headache. Negative for: Weakness, Numbness Physical Exam - Physical Exam Appears: Positive for: Non-toxic, No Acute Distress Head Exam: Positive for: ATRAUMATIC, NORMAL INSPECTION, NORMOCEPHALIC Skin: Positive for: Normal Color, Warm, DRY Eye Exam: Positive for: EOMI, PERRL Neck: Positive for: Normal, Painless ROM, Supple Neurologic/Psych: Positive for: Alert, Oriented. Negative for: Motor/Sensory Deficits - ECG O2 Sat by Pulse Oximetry: 98 Disposition - Clinical Impression Clinical Impression: Migraine - Patient ED Disposition Is Patient to be Admitted: No Counseled Patient/Family Regarding: Studies Performed, Diagnosis, Need For Followup, Rx Given - Disposition Disposition: Routine/Home Disposition Time: 10:16 Condition: FAIR Prescriptions: Acetaminophen/Butalbital/Caf [Fioricet] 1 tab PO Q8 #10 tab Instructions: Migraine Headache (DC) Forms: [employer] ([place]zeri)
--- NOTE | 2018-04-26 09:20 | CT ---
PROCEDURE: CT HEAD WITHOUT CONTRAST. HISTORY: r/o bleed COMPARISON: CT head dated 02/17/2015. TECHNIQUE: Axial computed tomography images were obtained through the head/brain without intravenous contrast. Radiation dose: Total exam DLP = 833.5 mGy-cm. This CT exam was performed using one or more of the following dose reduction techniques: Automated exposure control, adjustment of the mA and/or kV according to patient size, and/or use of iterative reconstruction technique. FINDINGS: HEMORRHAGE: No intracranial hemorrhage. BRAIN: No mass effect or edema. No atrophy or chronic microvascular ischemic changes. Right basal ganglia lacunar infarction. VENTRICLES: Unremarkable. No hydrocephalus. CALVARIUM: Unremarkable. PARANASAL SINUSES: Unremarkable as visualized. No significant inflammatory changes. MASTOID AIR CELLS: Unremarkable as visualized. No inflammatory changes. OTHER FINDINGS: None. IMPRESSION: No acute intracranial pathology.
[2018-04-26 10:46] VITALS: BP 133/83; PULSE 84; TEMP 97.8; O2SAT 100
== END 2018-04-26 10:35 | disposition home or self-care (01) ==
LOC: H.ER 07:51
DX: G43.909 Migraine, unspecified, not intractable, without status migrainosus (principal)
CPT/HCPCS: 70450; 96374; 96375; 99285; J2765; J2930; J7030

== ENCOUNTER 2018-07-21 00:38 | Emergency (ER) | payer OTHER ==
[2018-07-21 01:10] VITALS: BMI 43.9
[2018-07-21 01:15] VITALS: TEMP 98.8; O2SAT 98
[2018-07-21] MEDS ORDERED: PROPARACAINE/FLUORESCEIN SOD 100 DROP/5 ML BOTTLE OS STA (02:20)
--- NOTE | 2018-07-21 02:22 | ED PDOC ---
HPI: Eye Injury/Pain Chief Complaint (Provider): left eye irritation History Per: Patient History/Exam Limitations: no limitations Onset/Duration Of Symptoms: Days (10) Current Symptoms Are (Timing): Still Present Associated Symptoms: Decreased Vision, FB Sensation, Discharge From Eye Additional Complaint(s): 57 y/o female presents for evaluation of left eye irritation x 10 days. Patient reports "foreign body" sensation, states when she wakes up she has discomfort with associated clear drainage. Patient states tonight she now has blurred vision to left eye. Denies fever, headache, dizziness. <Charleen Rondon - Last Filed: 07/21/18 02:47> <Neal Schroeder - Last Filed: 07/22/18 03:51> Time Seen by Provider: 07/21/18 01:54 Chief Complaint (Nursing): Eye Problem Past Medical History Reviewed: Historical Data, Nursing Documentation, Vital Signs Vital Signs: Last Vital Signs Temp 98.8 F 07/21/18 01:10 Pulse 86 07/21/18 01:10 Resp 16 07/21/18 01:10 BP 161/104 H 07/21/18 01:10 Pulse Ox 98 07/21/18 01:10 - Medical History PMH: Anxiety, Arthritis, Asthma, Back Problems, Bronchitis, COPD, Depression, Diabetes (type II (steroid induced)), Deep Vein Thrombosis, Emphysema, Gastritis, GERD, Hiatal Hernia, HTN, Pneumonia, Pulmonary Embolism (2000, 2008), Chronic Pain Denies: CAD, Cardia Arrhythmia, CHF, Crohn's Disease, Dementia, Diverticulitis, Fractures, Gall Bladder Disease, Osteoporosis, Pancreatitis, Paranoia, Parkinson's Disease, Peripheral Edema, Post Traumatic Stress Disorder, Chronic Kidney Disease, Rheumatoid Arthritis, Schizophrenia, Seizures, Sickle Cell Disease, Sexually Transmitted Disease, TIA - Surgical History Surgical History: Cholecystectomy, Endoscopy, Denies: Appendectomy, CABG, Carotid Endarterectomy, Coronary Stent, Pacemaker, Tonsillectomy - Family History Family History: States: Unknown Family Hx - Immunization History Hx Tetanus Toxoid Vaccination: No Hx Influenza Vaccination: No Hx Pneumococcal Vaccination: No <Charleen Rondon - Last Filed: 07/21/18 02:47> Vital Signs: Last Vital Signs Temp 98.8 F 07/21/18 01:10 Pulse 95 H 07/21/18 03:10 Resp 17 07/21/18 03:10 BP 143/96 H 07/21/18 03:10 Pulse Ox 98 07/21/18 03:10 <Neal Schroeder - Last Filed: 07/22/18 03:51> - Home Medications Home Medications: Ambulatory Orders Medication Instructions Recorded RX: Montelukast [Singulair] 10 mg PO DAILY 09/02/16 RX: Rivaroxaban [Xarelto] 20 mg PO HS 09/02/16 RX: Albuterol HFA [Ventolin HFA 90 2 puff IH Q4H PRN 09/20/16 mcg/actuation (8 g)] RX: Fluticasone/Salmeterol 250/50 1 puff IH Q12H 10/17/16 [Advair Diskus 250/50] RX: Amlodipine Bes/Olmesartan Med 1 tab PO DAILY 06/03/17 [Cony 5-40 mg Tablet] RX: Cholecalciferol [Vitamin D 1,000 unit PO DAILY 06/03/17 1000 IU] RX: Multivitamin/Iron/Folic Acid 1 tab PO DAILY 06/03/17 [Centrum Women Tablet] RX: Olanzapine [Zyprexa] 5 mg PO HS 06/03/17 RX: cloNIDine [Catapres] 0.1 mg PO DAILY PRN 06/03/17 RX: Metoclopramide [Reglan] 10 mg PO ACHS #60 tab 06/06/17 RX: PARoxetine [Paxil] 40 mg PO DAILY #30 tab 06/06/17 RX: Pantoprazole [Protonix EC Tab] 40 mg PO DAILY #30 ect 06/06/17 RX: Sucralfate [Carafate Tab] 1 gm PO BID #60 tab 06/06/17 Albuterol 0.083% [Albuterol 3 ml IH Q8 #1 neb 09/05/17 Sulfate 3 Ml] RX: Albuterol HFA [Ventolin HFA 90 2 puff IH Q4H #1 puff 09/05/17 mcg/actuation (8 g)] RX: predniSONE [predniSONE Tab] 10 mg PO TID #15 tab 09/05/17 Tobramycin 0.3% [Tobrex] 0.5 in TOP BID #1 tube 12/27/17 RX: Lidocaine 1 each TP DAILY #10 adh..patch 11/11/17 Dicyclomine [Bentyl] 10 mg PO QID PRN #30 cap 12/28/17 Famotidine [Pepcid] 20 mg PO BID #60 tab 12/28/17 Ondansetron [Zofran Odt] 4 mg PO ASDIR PRN #12 odt 12/28/17 RX: Ciprofloxacin 0.3% [Ciloxan 1 - 2 drop BOTHEYES Q4H #1 bottle 02/04/18 0.3% Ophth SOLN] Acetaminophen/Butalbital/Caf 1 tab PO Q8 #10 tab 04/26/18 [Fioricet] RX: Erythromycin 0.5% 1 applic OS Q6 #1 tube 07/21/18 [Erythromycin] - Allergies Allergies/Adverse Reactions: Allergies Allergy/AdvReac Type Severity Reaction Status Date / Time ketorolac tromethamine AdvReac bleeding Verified 07/21/18 01:10 [From Toradol] NSAIDS (Non-Steroidal AdvReac bleeding Verified 07/21/18 01:10 Anti-Inflamma Review of Systems ROS Statement: Except As Marked, All Systems Reviewed And Found Negative Eyes: Positive for: Pain, Redness <Charleen Rondon C - Last Filed: 07/21/18 02:47> Physical Exam - Reviewed Nursing Documentation Reviewed: Yes Vital Signs Reviewed: Yes - Physical Exam Appears: Positive for: Well, Non-toxic, No Acute Distress Head Exam: Positive for: ATRAUMATIC, NORMAL INSPECTION, NORMOCEPHALIC Skin: Positive for: Normal Color Eye Exam: Positive for: EOMI, PERRL, Conjunctival injection (left). Negative for: Periorbital swelling, Periorbital tenderness ENT: Positive for: Normal ENT Inspection Neurologic/Psych: Positive for: Alert, Oriented (x3) <Charleen Rondon - Last Filed: 07/21/18 02:47> - ECG O2 Sat by Pulse Oximetry: 98 - Progress ED Course And Treament: Left eye anesthesized with 2 drops flucaine; small corneal uptake noted right lower aspect Patient educated on findings, discharged with rx erythromycin opth ointment Advised to call ophthalmology office in am to schedule follow up appointment Return precautions given <Charleen Rondon - Last Filed: 07/21/18 02:47> Disposition - Patient ED Disposition Is Patient to be Admitted: No Counseled Patient/Family Regarding: Diagnosis, Need For Followup, Rx Given - Disposition Disposition: Routine/Home Disposition Time: 02:49 <Charleen Rondon - Last Filed: 07/21/18 02:47> <Nael Schroeder - Last Filed: 07/22/18 03:51> - Clinical Impression Clinical Impression: Corneal abrasion - Disposition Referrals: Ace Erwin MD [Staff Provider] - Condition: IMPROVED Prescriptions: RX: Erythromycin 0.5% [Erythromycin] 1 applic OS Q6 #1 tube Instructions: Corneal Abrasion Forms: [facility] (Citizen [place]) - PA / OUTPATIENT COORDINATOR / Resident Statement MD/DO has reviewed & agrees with the documentation as recorded. <Neal Schroeder - Last Filed: 07/22/18 03:51>
[2018-07-21] MEDS ORDERED: PROPARACAINE/FLUORESCEIN SOD 100 DROP/5 ML BOTTLE ONE (02:36)
[2018-07-21 03:10] VITALS: BP 143/96; PULSE 95; RESP 17
== END 2018-07-21 03:10 | disposition home or self-care (01) ==
LOC: H.ER 00:38
DX: S05.02XA Injury of conjunctiva and corneal abrasion without foreign body, left eye, initial encounter (principal); Z86.59 Personal history of other mental and behavioral disorders; G89.29 Other chronic pain; I10 Essential (primary) hypertension; J44.9 Chronic obstructive pulmonary disease, unspecified; Z86.711 Personal history of pulmonary embolism; Z86.718 Personal history of other venous thrombosis and embolism

== ENCOUNTER 2018-08-31 16:20 | Emergency (ER) | payer OTHER ==
[2018-08-31 16:20] VITALS: BMI 43.9
[2018-08-31 16:53] VITALS: BP 134/80; PULSE 96; RESP 18; TEMP 98.8; O2SAT 99
--- NOTE | 2018-08-31 19:51 | ED PDOC ---
HPI: General Adult Time Seen by Provider: 08/31/18 17:18 Chief Complaint (Nursing): ENT Problem Chief Complaint (Provider): Ear Pain History Per: Patient History/Exam Limitations: no limitations Onset/Duration Of Symptoms: Days Current Symptoms Are (Timing): Still Present Additional Complaint(s): 57 year old female with asthma, HTN, hyperlipidemia, diabetes, factor V leiden von xlerto presents with left ear pain onset for 3 days. She states the pain is in her right ear now. She saw her PMD 2 weeks ago who prescribed Ciprodex and pain persisted after completing the course so Coly-Mycin ear drops were prescribed. She used most of it but spilled some of it. Reports the ear pain has persisted and now she has dizziness and nausea for 2 days as well as subjective fever. Denies chills, sweats, vomiting, diarrhea, abdominal pain, CAD, CVA or TIA. Past Medical History Reviewed: Historical Data, Nursing Documentation, Vital Signs Vital Signs: Last Vital Signs Temp 98.8 F 08/31/18 16:51 Pulse 96 H 08/31/18 16:51 Resp 18 08/31/18 16:51 BP 134/80 08/31/18 16:51 Pulse Ox 99 08/31/18 16:51 - Medical History PMH: Anxiety, Arthritis, Asthma, Back Problems, Bronchitis, COPD, Depression, Diabetes (type II (steroid induced)), Deep Vein Thrombosis, Emphysema, Gastritis, GERD, Hiatal Hernia, HTN, Pneumonia, Pulmonary Embolism (2000, 2008), Chronic Pain Denies: CAD, Cardia Arrhythmia, CHF, Crohn's Disease, Dementia, Diverticulitis, Fractures, Gall Bladder Disease, Osteoporosis, Pancreatitis, Paranoia, Parkinson's Disease, Peripheral Edema, Post Traumatic Stress Disorder, Chronic Kidney Disease, Rheumatoid Arthritis, Schizophrenia, Seizures, Sickle Cell Disease, Sexually Transmitted Disease, TIA - Surgical History Surgical History: Cholecystectomy, Endoscopy, Denies: Appendectomy, CABG, Carotid Endarterectomy, Coronary Stent, Pacemaker, Tonsillectomy - Family History Family History: States: Unknown Family Hx - Social History Current smoker - smoking cessation education provided: No Alcohol: None Drugs: Denies - Immunization History Hx Tetanus Toxoid Vaccination: No Hx Influenza Vaccination: No Hx Pneumococcal Vaccination: No - Home Medications Home Medications: Ambulatory Orders Medication Instructions Recorded Montelukast [Singulair] 10 mg PO DAILY 11/14/16 Rivaroxaban [Xarelto] 20 mg PO HS 09/02/16 Albuterol HFA [Ventolin HFA 90 2 puff IH Q4H PRN 09/20/16 mcg/actuation (8 g)] Fluticasone/Salmeterol 250/50 1 puff IH Q12H 10/17/16 [Advair Diskus 250/50] Amlodipine Bes/Olmesartan Med 1 tab PO DAILY 06/03/17 [Cony 5-40 mg Tablet] Cholecalciferol [Vitamin D 1000 IU] 1,000 unit PO DAILY 06/03/17 Multivitamin/Iron/Folic Acid 1 tab PO DAILY 06/03/17 [Centrum Women Tablet] Olanzapine [Zyprexa] 5 mg PO HS 06/03/17 cloNIDine [Catapres] 0.1 mg PO DAILY PRN 06/03/17 Metoclopramide [Reglan] 10 mg PO ACHS #60 tab 06/06/17 PARoxetine [Paxil] 40 mg PO DAILY #30 tab 06/06/17 Pantoprazole [Protonix EC Tab] 40 mg PO DAILY #30 ect 06/06/17 Sucralfate [Carafate Tab] 1 gm PO BID #60 tab 06/06/17 Albuterol 0.083% [Albuterol 3 ml IH Q8 #1 neb 09/05/17 Sulfate 3 Ml] Albuterol HFA [Ventolin HFA 90 2 puff IH Q4H #1 puff 09/05/17 mcg/actuation (8 g)] predniSONE [predniSONE Tab] 10 mg PO TID #15 tab 09/05/17 Tobramycin 0.3% [Tobrex] 0.5 in TOP BID #1 tube 10/15/17 Lidocaine 1 each TP DAILY #10 adh..patch 11/11/17 Dicyclomine [Bentyl] 10 mg PO QID PRN #30 cap 12/28/17 Famotidine [Pepcid] 20 mg PO BID #60 tab 12/28/17 Ondansetron [Zofran Odt] 4 mg PO ASDIR PRN #12 odt 12/28/17 Ciprofloxacin 0.3% [Ciloxan 0.3% 1 - 2 drop BOTHEYES Q4H #1 bottle 02/04/18 Ophth SOLN] Acetaminophen/Butalbital/Caf 1 tab PO Q8 #10 tab 04/26/18 [Fioricet] Erythromycin 0.5% [Erythromycin] 1 applic OS Q6 #1 tube 07/21/18 Azithromycin 250 mg PO DAILY 5 Days tablet 08/31/18 Meclizine [Meclizine*] 25 mg PO DAILY 5 Days tab 08/31/18 Ondansetron [Zofran] 4 mg PO Q8H PRN 4 Days tab 08/31/18 - Allergies Allergies/Adverse Reactions: Allergies Allergy/AdvReac Type Severity Reaction Status Date / Time ketorolac tromethamine AdvReac bleeding Verified 08/31/18 16:51 [From Toradol] NSAIDS (Non-Steroidal AdvReac bleeding Verified 08/31/18 16:51 Anti-Inflamma Review of Systems ROS Statement: Except As Marked, All Systems Reviewed And Found Negative Constitutional: Positive for: Fever. Negative for: Chills, Sweats ENT: Positive for: Ear Pain (right) Gastrointestinal: Positive for: Nausea. Negative for: Vomiting, Abdominal Pain, Diarrhea Neurological: Positive for: Dizziness Physical Exam - Reviewed Nursing Documentation Reviewed: Yes Vital Signs Reviewed: Yes - Physical Exam Appears: Positive for: Well, Non-toxic, No Acute Distress Head Exam: Positive for: ATRAUMATIC, NORMAL INSPECTION, NORMOCEPHALIC Skin: Positive for: Normal Color, Warm, Dry. Negative for: Rash Eye Exam: Positive for: EOMI, Normal appearance, PERRL ENT: Positive for: TM Is/Are (Left TM with effusion behind it, canal no lesion, no erythema, no edema. No pain on palpation behind left ear. Right TM is dull , no erythema, no drainage or edema) Neck: Negative for: Normal (Mild tenderness to palpation on left neck) Cardiovascular/Chest: Positive for: Regular Rate, Rhythm. Negative for: Murmur Respiratory: Positive for: Normal Breath Sounds. Negative for: Decreased Breath Sounds, Wheezing, Respiratory Distress Neurologic/Psych: Positive for: Alert, Oriented (x3). Negative for: Motor/Sensory Deficits - ECG O2 Sat by Pulse Oximetry: 99 (RA) Pulse Ox Interpretation: Normal Medical Decision Making Medical Decision Making: Time: 1801 Initial Plan: Rapid Strep Group A Antigen Reevaluation Upon provider evaluation patient is medically stable, and requires no further treatment in the ED at this time. Patient will be discharged home with Azithromycin 250 mg, Meclizine 25mg, and Zofran 4mg. Counseling was provided and all questions were answered regarding diagnosis and need for follow up with ENT specialist. There is agreement to discharge plan. Return if symptoms persist or worsen. Scribe Attestation: Documented by Miriam Rodriges, acting as a scribe for Lorie Vigil PA-C Provider Scribe Attestation: All medical record entries made by the Scribe were at my direction and personally dictated by me. I have reviewed the chart and agree that the record accurately reflects my personal performance of the history, physical exam, medical decision making, and the department course for this patient. I have also personally directed, reviewed, and agree with the discharge instructions and disposition. Disposition - Clinical Impression Clinical Impression: Left ear pain - Patient ED Disposition Is Patient to be Admitted: No Counseled Patient/Family Regarding: Studies Performed, Diagnosis, Need For Followup, Rx Given - Disposition Referrals: Damian Garcia MD [Family Provider] - Disposition: Routine/Home Disposition Time: 19:10 Condition: GOOD Additional Instructions: f/u with an ear/nose/throat specialist if your symptoms do not resolve after oral antibiotics or return to ER if they get worse. Prescriptions: Azithromycin 250 mg PO DAILY 5 Days tablet Meclizine [Meclizine*] 25 mg PO DAILY 5 Days tab Ondansetron [Zofran] 4 mg PO Q8H PRN 4 Days tab PRN Reason: Nausea/Vomiting Forms: [facility] ([place]) Print Language: WOLOF
== END 2018-08-31 19:20 | disposition home or self-care (01) ==
LOC: H.ER 16:20
DX: H92.02 Otalgia, left ear (principal); E11.9 Type 2 diabetes mellitus without complications; Z86.59 Personal history of other mental and behavioral disorders; I10 Essential (primary) hypertension; J44.9 Chronic obstructive pulmonary disease, unspecified; G89.29 Other chronic pain; Z86.711 Personal history of pulmonary embolism; Z86.718 Personal history of other venous thrombosis and embolism; Z79.899 Other long term (current) drug therapy; J43.9 Emphysema, unspecified

== ENCOUNTER 2018-10-12 15:14 | Emergency (ER) | payer OTHER ==
[2018-10-12 15:14] VITALS: BMI 43.9
[2018-10-12 15:23] VITALS: RESP 18; TEMP 98.3
--- NOTE | 2018-10-12 15:46 | ED PDOC ---
HPI: Chest Pain Time Seen by Provider: 10/12/18 15:24 Chief Complaint (Nursing): Rib Injury Chief Complaint (Provider): Chest Pain History Per: Patient History/Exam Limitations: no limitations Onset/Duration Of Symptoms: Days (5x) Current Symptoms Are (Timing): Still Present Severity: Moderate Exacerbating Factors: Movement, Deep Breathing (deep inspiration) Additional Complaint(s): 58 year old female with a past medical history of pulmonary embolism (5x years ago), hypertension, and diabetes presents to the ED for an evaluation of atraumatic left sided chest pain that started 5x days ago. Patient states that it radiates to her back and worsens with deep inspiration and movement. Patient reports that 4x days ago, after the pain began, she drove to [place], and came back yesterday because the pain persisted. Patient denies having hemoptysis, shortness of breath, nausea, vomiting, trauma, fevers, hematuria, numbness, tingling, and rash. Of note: Patient reports that she takes Xarelto daily. PMD: Damian Read MD - Risk Factors PE Risk Factors: Pos: Previous PE TAD Risk Factors: Pos: Hypertension Past Medical History Reviewed: Historical Data, Nursing Documentation, Vital Signs Vital Signs: Last Vital Signs Temp 98.3 F 10/12/18 15:20 Pulse 98 H 10/12/18 15:20 Resp 18 10/12/18 15:20 BP 161/94 H 10/12/18 15:20 Pulse Ox 99 10/12/18 15:20 LIZZETTE report viewed?: Yes - Medical History PMH: Anxiety, Arthritis, Asthma, Back Problems, Bronchitis, COPD, Depression, Diabetes (type II (steroid induced)), Deep Vein Thrombosis, Emphysema, Gastritis, GERD, Hiatal Hernia, HTN, Pneumonia, Pulmonary Embolism (2000, 2008, as per patient: most recent PE was 5x years ago), Chronic Pain Denies: CAD, Cardia Arrhythmia, CHF, Crohn's Disease, Dementia, Diverticu litis, Fractures, Gall Bladder Disease, Osteoporosis, Pancreatitis, Paranoia, Parkinson's Disease, Peripheral Edema, Post Traumatic Stress Disorder, Chronic Kidney Disease, Rheumatoid Arthritis, Schizophrenia, Seizures, Sickle Cell Disease, Sexually Transmitted Disease, TIA - Surgical History Surgical History: Cholecystectomy, Endoscopy, Denies: Appendectomy, CABG, Carotid Endarterectomy, Coronary Stent, Pacemaker, Tonsillectomy - Family History Family History: States: No Known Family Hx - Social History Current smoker - smoking cessation education provided: No Ex-Smoker (has not smoked in the last 12 months): Yes Alcohol: None Drugs: Denies - Immunization History Hx Tetanus Toxoid Vaccination: No Hx Influenza Vaccination: No Hx Pneumococcal Vaccination: No - Home Medications Home Medications: Ambulatory Orders Medication Instructions Recorded RX: Montelukast [Singulair] 10 mg PO DAILY 09/02/16 RX: Rivaroxaban [Xarelto] 20 mg PO HS 09/02/16 RX: Albuterol HFA [Ventolin HFA 90 2 puff IH Q4H PRN 09/20/16 mcg/actuation (8 g)] RX: Fluticasone/Salmeterol 250/50 1 puff IH Q12H 10/17/16 [Advair Diskus 250/50] RX: Amlodipine Bes/Olmesartan Med 1 tab PO DAILY 06/03/17 [Cony 5-40 mg Tablet] RX: Cholecalciferol [Vitamin D 1,000 unit PO DAILY 06/03/17 1000 IU] RX: Multivitamin/Iron/Folic Acid 1 tab PO DAILY 06/03/17 [Centrum Women Tablet] RX: Olanzapine [Zyprexa] 5 mg PO HS 06/03/17 RX: cloNIDine [Catapres] 0.1 mg PO DAILY PRN 06/03/17 RX: Metoclopramide [Reglan] 10 mg PO ACHS #60 tab 06/06/17 RX: PARoxetine [Paxil] 40 mg PO DAILY #30 tab 06/06/17 RX: Pantoprazole [Protonix EC Tab] 40 mg PO DAILY #30 ect 06/06/17 RX: Sucralfate [Carafate Tab] 1 gm PO BID #60 tab 06/06/17 Albuterol 0.083% [Albuterol 3 ml IH Q8 #1 neb 09/05/17 Sulfate 3 Ml] RX: Albuterol HFA [Ventolin HFA 90 2 puff IH Q4H #1 puff 09/05/17 mcg/actuation (8 g)] RX: predniSONE [predniSONE Tab] 10 mg PO TID #15 tab 09/05/17 Tobramycin 0.3% [Tobrex] 0.5 in TOP BID #1 tube 10/15/17 RX: Lidocaine 1 each TP DAILY #10 adh..patch 11/11/17 Dicyclomine [Bentyl] 10 mg PO QID PRN #30 cap 12/28/17 Famotidine [Pepcid] 20 mg PO BID #60 tab 12/28/17 Ondansetron [Zofran Odt] 4 mg PO ASDIR PRN #12 odt 12/28/17 RX: Ciprofloxacin 0.3% [Ciloxan 1 - 2 drop BOTHEYES Q4H #1 bottle 02/04/18 0.3% Ophth SOLN] Acetaminophen/Butalbital/Caf 1 tab PO Q8 #10 tab 04/26/18 [Fioricet] RX: Erythromycin 0.5% 1 applic OS Q6 #1 tube 07/21/18 [Erythromycin] Ondansetron [Zofran] 4 mg PO Q8H PRN 4 Days tab 08/31/18 RX: Azithromycin 250 mg PO DAILY 5 Days tablet 08/31/18 RX: Meclizine [Meclizine*] 25 mg PO DAILY 5 Days tab 08/31/18 Lidocaine 5% [Lidoderm] 1 ea TD DAILY PRN #10 patch 10/12/18 Methylprednisolone [Medrol Dose 4 mg PO DAILY #21 mg 10/12/18 Pack (21 tabs)] - Allergies Allergies/Adverse Reactions: Allergies Allergy/AdvReac Type Severity Reaction Status Date / Time ketorolac tromethamine AdvReac bleeding Verified 08/31/18 16:51 [From Toradol] NSAIDS (Non-Steroidal AdvReac bleeding Verified 08/31/18 16:51 Anti-Inflamma Review of Systems ROS Statement: Except As Marked, All Systems Reviewed And Found Negative Cardiovascular: Positive for: Chest Pain (atraumatic left sided chest pain, radiates to back, worsens with movement and deep inspiration) Respiratory: Negative for: Shortness of Breath, Hemoptysis Gastrointestinal: Negative for: Nausea, Vomiting Genitourinary Female: Negative for: Hematuria Skin: Negative for: Rash Neurological: Negative for: Numbness Physical Exam - Reviewed Nursing Documentation Reviewed: Yes Vital Signs Reviewed: Yes - Physical Exam Appears: Positive for: Well, Non-toxic, No Acute Distress Head Exam: Positive for: ATRAUMATIC, NORMOCEPHALIC Skin: Positive for: Normal Color, Warm, Dry. Negative for: Rash ((-) rash to chest) Eye Exam: Positive for: Normal appearance Cardiovascular/Chest: Positive for: Regular Rate, Rhythm. Negative for: Chest Non Tender (left sided axillary chest wall tenderness. ) Respiratory: Positive for: Normal Breath Sounds. Negative for: Respiratory Distress Gastrointestinal/Abdominal: Positive for: Normal Exam, Soft. Negative for: Tenderness Extremity: Negative for: Calf Tenderness (bilaterally) Neurologic/Psych: Positive for: Alert, Oriented (3x) - Laboratory Results Result Diagrams: 10/12/18 15:45 10/12/18 15:45 - ECG ECG: Positive for: Interpreted By Me ECG Rhythm: Positive for: Sinus Rhythm. Negative for: ST/T Changes O2 Sat by Pulse Oximetry: 99 (RA) Pulse Ox Interpretation: Normal - Radiology X-Ray: Viewed By Me, Read By Radiologist (see MDM) - CT Scan/US angio chest Other Rad Studies (CT/US): Read By Radiologist, Radiology Report Reviewed (see MDM note) Medical Decision Making Medical Decision Makin:24 Initial impression: 58 year old female with chest pain Initial plan: -- CT angio chest PE protocol -- XRay chest 2 views -- EKG -- CMP -- troponin I -- CBC with diff -- urinalysis -- reevaluation 16:37 XRay chest read and reviewed by radiologist FINDINGS: LUNGS: No definite pneumonitis bilaterally. Limited fibrotic changes are stable at the left base, borderline on the right. PLEURA: No significant pleural effusion identified. No pneumothorax apparent. CARDIOVASCULAR: No aortic atherosclerotic calcification present. Normal cardiac size. No pulmonary vascular congestion. OSSEOUS STRUCTURES: Scoliotic thoracic spine deformity again evident. VISUALIZED UPPER ABDOMEN: Normal. OTHER FINDINGS: None. IMPRESSION: No acute cardiopulmonary disease appreciable in the interval. Fibrotic changes stable the left base, borderline at the right. 17:40 CT chest read and reviewed by radiologist FINDINGS: PULMONARY ARTERIES: No pulmonary embolism. Limitations of the current examination: Qualitative and quantitative assessment of filling of the pulmonary arterial system precludes optimal assessment at the subsegmental branch level. Dilated main pulmonary artery, findings consistent with pulmonary arterial hypertension. AORTA: No acute findings. No thoracic aortic aneurysm. No atherosclerotic calcification or mural plaque present. LUNGS: Unremarkable. No nodule, mass or pulmonary consolidation. PLEURAL SPACES: Unremarkable. No effusion or pneumothorax. HEART: Unremarkable. No cardiomegaly. No significant pericardial effusion. LYMPH NODES: No lymphadenopathy. BONES, CHEST WALL: Unremarkable. No fracture or destructive lesion OTHER FINDINGS: Unremarkable. IMPRESSION: Unremarkable CT pulmonary angiogram. No pulmonary embolus. Case d/w Dr. Archuleta who agrees with plan and care. Scribe Attestation: Documented by Mckenna Orellana, acting as a scribe for Jero Perea Provider Scribe Attestation: All medical record entries made by the Scribe were at my direction and personally dictated by me. I have reviewed the chart and agree that the record accurately reflects my personal performance of the history, physical exam, medical decision making, and the department course for this patient. I have also personally directed, reviewed, and agree with the discharge instructions and disposition. Disposition - Clinical Impression Clinical Impression: Chest wall pain - Patient ED Disposition Is Patient to be Admitted: No - Disposition Referrals: Damain Read MD [Family Provider] - Disposition: Routine/Home Disposition Time: 18:05 Condition: STABLE Additional Instructions: FOLLOW UP WITH DR. READ FOR FURTHER EVALUATION RETURN TO ED IMMEDIATELY IF SYMPTOMS WORSEN PANCHO WILEY, thank you for letting us take care of you today. Your provider was Fred Archuleta MD and you were treated for ABD PAIN. The emergency medical care you received today was directed at your acute symptoms. If you were prescribed any medication, please fill it and take as directed. It may take several days for your symptoms to resolve. Return to the Emergency Department if your symptoms worsen, do not improve, or if you have any other problems. Please contact your doctor or call one of the physicians/clinics you have been referred to that are listed on the Patient Visit Information form that is included in your discharge packet. Bring any paperwork you were given at discharge with you along with any medications you are taking to your follow up visit. Our treatment cannot replace ongoing medical care by a primary care provider outside of the emergency department. Thank you for allowing the [facility] team to be part of your care today. If you had an X-Ray or CT scan: A Radiologist will review the ED reading if any change in treatment is needed we will contact you. If you had a blood, urine, or wound culture: It will take several days for the results, if any change in treatment is needed we will contact you. If you had an STI test: It will take 48 hours for the results. Please call after 1 week if you have not heard back. Prescriptions: Lidocaine 5% [Lidoderm] 1 ea TD DAILY PRN #10 patch PRN Reason: pain Methylprednisolone [Medrol Dose Pack (21 tabs)] 4 mg PO DAILY #21 mg Instructions: Chest Pain That Is Not Caused by the Heart (DC) Forms: [email or web address] (Surinamese) Print Language: SYRIAN
[2018-10-12 16:15] LABS: BASO # 0.1 K/uL (0.0-0.2); BASO % 1.2 % (0.0-2.0); EOS # 0.2 K/uL (0.0-0.7); EOS % 2.5 % (0.0-4.0); HEMOGLOBIN 12.4 g/dL (12.0-16.0); LYMPH # 1.5 K/uL (1.0-4.3); LYMPH % 21.4 % (20.0-40.0); MEAN CELL VOLUME 88.6 fl (81.0-99.0); MEAN CORPUSCULAR HEMOGLOBIN 28.8 pg (27.0-31.0); MEAN CORPUSCULAR HGB CONC 32.5 g/dL (33.0-37.0); MEAN PLATELET VOLUME 8.1 fl (7.2-11.7); MONO # 0.5 K/uL (0.0-0.8); MONO % 7.8 % (0.0-10.0); NEUT # 4.6 K/uL (1.8-7.0); NEUT % 67.1 % (50.0-75.0); RBC 4.29 Mil/uL (3.80-5.20); RED CELL DISTRIBUTION WIDTH 14.2 % (11.5-14.5); WHITE BLOOD COUNT 6.8 K/uL (4.8-10.8)
[2018-10-12 16:16] LABS: SQUAMOUS EPITHIAL 2 /hpf (0-5); URINE BACTERIA RARE (<OCC); URINE BILIRUBIN NEGATIVE (NEGATIVE); URINE BLOOD NEGATIVE (NEGATIVE); URINE CLARITY SLIGHTY-CLOUDY (Clear); URINE COLOR YELLOW (YELLOW); URINE GLUCOSE (UA) NEG (NEGATIVE); URINE LEUKOCYTE ESTERASE NEG Leu/uL (Negative); URINE PROTEIN NEGATIVE (NEGATIVE); URINE UROBILINOGEN 0.2-1.0 mg/dL (0.2-1.0)
[2018-10-12 16:23] LABS: ALB/GLOB RATIO 1.1 (1.0-2.1); ALT/SGPT 28 U/L (9-52); AST/SGOT 23 U/L (14-36); BLOOD UREA NITROGEN 15 mg/dl (7-17); CALCIUM 9.1 mg/dL (8.4-10.2); GFR NON-AFRICAN AMERICAN > 60
[2018-10-12 16:29] LABS: INR 1.1; PROTHROMBIN TIME 12.6 Seconds (9.8-13.1)
--- NOTE | 2018-10-12 16:41 | RAD ---
Date of service: 10/12/2018 HISTORY: L side chest pain COMPARISON: Portable chest 12/28/2017. TECHNIQUE: Chest PA and lateral FINDINGS: LUNGS: No definite pneumonitis bilaterally. Limited fibrotic changes are stable at the left base, borderline on the right. PLEURA: No significant pleural effusion identified. No pneumothorax apparent. CARDIOVASCULAR: No aortic atherosclerotic calcification present. Normal cardiac size. No pulmonary vascular congestion. OSSEOUS STRUCTURES: Scoliotic thoracic spine deformity again evident. VISUALIZED UPPER ABDOMEN: Normal. OTHER FINDINGS: None. IMPRESSION: No acute cardiopulmonary disease appreciable in the interval. Fibrotic changes stable the left base, borderline at the right.
[2018-10-12] MEDS ORDERED: Sodium Chloride 0.9% 50 ML IV ONE (17:15)
[2018-10-12] MEDS ORDERED: Iodixanol 320 MG/ML 100 ML BOTTLE IV ONE (17:15)
--- NOTE | 2018-10-12 17:59 | CT ---
Date of service: 10/12/2018 PROCEDURE: CT Chest with contrast (Pulmonary Angiogram) HISTORY: L sided chest pain, hx of PE COMPARISON: 05/23/2014. CT pulmonary angiogram. Summary of findings on the comparison examination: "The studies positive for very small brand segmental pulmonary emboli involving both upper lobes and both lower lobes." TECHNIQUE: Axial computed tomography images were obtained of the chest in the pulmonary arterial phase of enhancement. Coronal and sagittal reformatted images were created and reviewed. Intravenous contrast dose: 100 cc Visipaque [id number]. Mean Hounsfield value in the main pulmonary artery: 237.35 Radiation dose: Total exam DLP = <inf_radiation_dlp> mGy-cm. This CT exam was performed using one or more of the following dose reduction techniques: Automated exposure control, adjustment of the mA and/or kV according to patient size, and/or use of iterative reconstruction technique. FINDINGS: PULMONARY ARTERIES: No pulmonary embolism. Limitations of the current examination: Qualitative and quantitative assessment of filling of the pulmonary arterial system precludes optimal assessment at the subsegmental branch level. Dilated main pulmonary artery, findings consistent with pulmonary arterial hypertension. AORTA: No acute findings. No thoracic aortic aneurysm. No atherosclerotic calcification or mural plaque present. LUNGS: Unremarkable. No nodule, mass or pulmonary consolidation. PLEURAL SPACES: Unremarkable. No effusion or pneumothorax. HEART: Unremarkable. No cardiomegaly. No significant pericardial effusion. LYMPH NODES: No lymphadenopathy. BONES, CHEST WALL: Unremarkable. No fracture or destructive lesion OTHER FINDINGS: Unremarkable. IMPRESSION: Unremarkable CT pulmonary angiogram. No pulmonary embolus.
[2018-10-12] MEDS ORDERED: Lidocaine 5% Patch TD STA (18:04)
[2018-10-12] MEDS ORDERED: Lidocaine 5% Patch TD ONE (18:57)
[2018-10-12 19:10] VITALS: BP 122/86; PULSE 84
[2018-10-13] VITALS: O2SAT 99
--- NOTE | 2018-10-13 20:23 | CARD ---
APPROVED REPORT Date of service: 10/12/2018 EKG Measurement Heart [id number] <Conclusion> Normal sinus rhythm Normal ECG
== END 2018-10-12 19:08 | disposition home or self-care (01) ==
LOC: H.ER 15:14
DX: R07.89 Other chest pain (principal); E11.9 Type 2 diabetes mellitus without complications; Z86.59 Personal history of other mental and behavioral disorders; G89.29 Other chronic pain; I10 Essential (primary) hypertension; J44.9 Chronic obstructive pulmonary disease, unspecified; Z86.711 Personal history of pulmonary embolism; Z86.718 Personal history of other venous thrombosis and embolism; Z87.891 Personal history of nicotine dependence
CPT/HCPCS: 71046; 71275; 80053; 81003; 84484; 85025; 85610; 85730; 93005; 99283; Q9967

== ENCOUNTER 2018-10-21 16:28 | Emergency (ER) | payer OTHER ==
[2018-10-21 16:29] VITALS: BMI 43.9
[2018-10-21 19:34] VITALS: BP 126/82; PULSE 80; RESP 16; TEMP 97.9; O2SAT 98
[2018-10-21] MEDS ORDERED: PROPARACAINE/FLUORESCEIN SOD 100 DROP/5 ML BOTTLE OD STA (19:34)
[2018-10-21] MEDS ORDERED: Fluorescein 1 mg Ophthalmic Strip ONE (19:54)
[2018-10-21] MEDS ORDERED: Polymyxin/Trimethoprim Ophth Soln OS STA (19:57)
--- NOTE | 2018-10-21 19:59 | ED PDOC ---
HPI: Eye Injury/Pain Time Seen by Provider: 10/21/18 19:34 Chief Complaint (Nursing): Eye Problem Chief Complaint (Provider): LEFT EYE PAIN REDNESS History Per: Patient Quality: Sharp Wears Contact Lens?: No Associated Symptoms: Pain, FB Sensation, Itching, Discharge From Eye (clear). denies: Decreased Vision, Swelling Additional Complaint(s): 58yo F c.o pain and FB sensation to L eye associated w increased lacrimation since friday. Denies contact lens use, fever, trauma, swelling or sick contacts. Used OTC eye drops without improvement. Past Medical History Reviewed: Historical Data, Nursing Documentation, Vital Signs Vital Signs: Last Vital Signs Temp 97.9 F 10/21/18 19:32 Pulse 80 10/21/18 19:32 Resp 16 10/21/18 19:32 BP 126/82 10/21/18 19:32 Pulse Ox 98 10/21/18 19:32 - Medical History PMH: Anxiety, Arthritis, Asthma, Back Problems, Bronchitis, COPD, Depression, Diabetes (type II (steroid induced)), Deep Vein Thrombosis, Emphysema, Gastritis, GERD, Hiatal Hernia, HTN, Pneumonia, Pulmonary Embolism (2000, 2008, as per patient: most recent PE was 5x years ago), Chronic Pain Denies: CAD, Cardia Arrhythmia, CHF, Crohn's Disease, Dementia, Diverticulitis, Fractures, Gall Bladder Disease, Osteoporosis, Pancreatitis, Paranoia, Parkinson's Disease, Peripheral Edema, Post Traumatic Stress Disorder, Chronic Kidney Disease, Rheumatoid Arthritis, Schizophrenia, Seizures, Sickle Cell Disease, Sexually Transmitted Disease, TIA - Surgical History Surgical History: Cholecystectomy, Endoscopy, Denies: Appendectomy, CABG, Carotid Endarterectomy, Coronary Stent, Pacema ker, Tonsillectomy - Family History Family History: States: Unknown Family Hx - Living Arrangements Living Arrangements: With Family - Social History Current smoker - smoking cessation education provided: No - Immunization History Hx Tetanus Toxoid Vaccination: No Hx Influenza Vaccination: No Hx Pneumococcal Vaccination: No - Home Medications Home Medications: Ambulatory Orders Medication Instructions Recorded RX: Montelukast [Singulair] 10 mg PO DAILY 09/02/16 RX: Rivaroxaban [Xarelto] 20 mg PO HS 09/02/16 RX: Albuterol HFA [Ventolin HFA 90 2 puff IH Q4H PRN 09/20/16 mcg/actuation (8 g)] RX: Fluticasone/Salmeterol 250/50 1 puff IH Q12H 10/17/16 [Advair Diskus 250/50] RX: Amlodipine Bes/Olmesartan Med 1 tab PO DAILY 06/03/17 [Cony 5-40 mg Tablet] RX: Cholecalciferol [Vitamin D 1,000 unit PO DAILY 06/03/17 1000 IU] RX: Multivitamin/Iron/Folic Acid 1 tab PO DAILY 06/03/17 [Centrum Women Tablet] RX: Olanzapine [Zyprexa] 5 mg PO HS 06/03/17 RX: cloNIDine [Catapres] 0.1 mg PO DAILY PRN 06/03/17 RX: Metoclopramide [Reglan] 10 mg PO ACHS #60 tab 06/06/17 RX: PARoxetine [Paxil] 40 mg PO DAILY #30 tab 06/06/17 RX: Pantoprazole [Protonix EC Tab] 40 mg PO DAILY #30 ect 06/06/17 RX: Sucralfate [Carafate Tab] 1 gm PO BID #60 tab 06/06/17 Albuterol 0.083% [Albuterol 3 ml IH Q8 #1 neb 09/05/17 Sulfate 3 Ml] RX: Albuterol HFA [Ventolin HFA 90 2 puff IH Q4H #1 puff 09/05/17 mcg/actuation (8 g)] RX: predniSONE [predniSONE Tab] 10 mg PO TID #15 tab 09/05/17 Tobramycin 0.3% [Tobrex] 0.5 in TOP BID #1 tube 10/15/17 RX: Lidocaine 1 each TP DAILY #10 adh..patch 11/11/17 Dicyclomine [Bentyl] 10 mg PO QID PRN #30 cap 12/28/17 Famotidine [Pepcid] 20 mg PO BID #60 tab 12/28/17 Ondansetron [Zofran Odt] 4 mg PO ASDIR PRN #12 odt 12/28/17 RX: Ciprofloxacin 0.3% [Ciloxan 1 - 2 drop BOTHEYES Q4H #1 bottle 02/04/18 0.3% Ophth SOLN] Acetaminophen/Butalbital/Caf 1 tab PO Q8 #10 tab 04/26/18 [Fioricet] RX: Erythromycin 0.5% 1 applic OS Q6 #1 tube 07/21/18 [Erythromycin] Ondansetron [Zofran] 4 mg PO Q8H PRN 4 Days tab 08/31/18 RX: Azithromycin 250 mg PO DAILY 5 Days tablet 08/31/18 RX: Meclizine [Meclizine*] 25 mg PO DAILY 5 Days tab 08/31/18 Lidocaine 5% [Lidoderm] 1 ea TD DAILY PRN #10 patch 10/12/18 Methylprednisolone [Medrol Dose 4 mg PO DAILY #21 mg 10/12/18 Pack (21 tabs)] - Allergies Allergies/Adverse Reactions: Allergies Allergy/AdvReac Type Severity Reaction Status Date / Time No Known Allergies Allergy Verified 10/21/18 19:31 Review of Systems ROS Statement: Except As Marked, All Systems Reviewed And Found Negative Constitutional: Negative for: Fever Eyes: Positive for: Pain, Conjunctivae Inflammation, Redness, Other (tearing). Negative for: Vision Change ENT: Negative for: Ear Pain Cardiovascular: Negative for: Chest Pain Respiratory: Negative for: Shortness of Breath Gastrointestinal: Negative for: Abdominal Pain Neurological: Negative for: Headache Physical Exam - Reviewed Nursing Documentation Reviewed: Yes Vital Signs Reviewed: Yes - Physical Exam Appears: Positive for: Well, Non-toxic Head Exam: Positive for: ATRAUMATIC Skin: Positive for: Normal Color, Warm, Dry Eye Exam: Positive for: Normal appearance, EOMI, Conjunctival injection (mild), Other (+fluroscein uptake 3oclock on cornea no clouding mild increased lacrimation w mild scleral injection). Negative for: Periorbital swelling, Periorbital tenderness - ECG O2 Sat by Pulse Oximetry: 98 Medical Decision Making Medical Decision Making: start polytrim, eye patch, see ophtho 1-2 days for re-eval. R 20/40 L 20/50 BL 20/30 Disposition - Clinical Impression Clinical Impression: Corneal abrasion - Patient ED Disposition Is Patient to be Admitted: No Counseled Patient/Family Regarding: Studies Performed, Diagnosis, Need For Followup, Rx Given (polytrim gtts given and instructions explained) - Disposition Referrals: Ace Erwin MD [Staff Provider] - Disposition: Routine/Home Disposition Time: 20:30 Condition: STABLE Additional Instructions: SEE EYE DOCTOR IN NEXT 2-3 DAYS. RETURN TO ER FOR ANY WORSE OR NEW SYMPTOMS. USE 2 DROPS TO LEFT EYE EVERY 4 HOURS X5 DAYS./ Instructions: Corneal Abrasion (DC) Forms: [employer] (Afghan)
== END 2018-10-21 20:52 | disposition home or self-care (01) ==
LOC: H.ER 16:28
DX: S05.02XA Injury of conjunctiva and corneal abrasion without foreign body, left eye, initial encounter (principal); Y92.89 Other specified places as the place of occurrence of the external cause